=== PATIENT | female | born 1950 | race Caucasian/White ===

== ENCOUNTER → 2017-04-19 09:27 | Outpatient (CLI) | payer MEDICARE, SELFPAY ==
--- NOTE | 2017-04-19 07:00 | PET_ITS ---
EXAMINATION: FDG PET CT INDICATIONS: A 66-year-old female with reported history of primary lung carcinoma presenting for restaging examination. COMPARISON EXAMINATION: Previous FDG PET study dated 12/21/16. INDEX LESION SIZE SUV INTERPRETATION PERSISTENT: Tenth thoracic vertebra left of the midline 2.7 compared to 5.3, 12/21/16 Fulfills quantitative criteria for viable neoplasm, interim metabolic improvement ? quantitative partial metabolic response NON-INDEX LESION SIZE SUV INTERPRETATION NEW: Left lower posteromedial lung zone corresponding calcified soft tissue 2.1 Quantitative criteria for viable neoplasm are not fulfilled TECHNIQUE: Following the intravenous administration of 14.49 mCi of F-18 deoxyglucose via the left antecubital fossa, multiplanar image acquisitions of the neck, chest, abdomen and pelvis to level of mid thigh, obtained at one hour post radiopharmaceutical administration contemporaneously interpreted with the current CT of the neck, chest, abdomen and pelvis to level of mid thigh, dated 04/19/17 via coregistration and prior-previous FDG PET study dated 12/21/16 reveal: SERUM GLUCOSE LEVEL: 88 mg/dl. HEIGHT: 67 inches. WEIGHT: 120 lbs. FINDINGS: 1. Increased glucose metabolism persists at the level of the tenth thoracic vertebra to the left of the midline contiguous to the vertebral body generating a calculated maximum standard uptake value of 2.7 compared to 5.3 defined on the FDG PET study dated 12/21/16. Quantitative criteria for viable osseous neoplasm remain filled. A corresponding mixed sclerotic-lytic change is noted on view of CT of the thorax dated 04/19/17 in the analogous location. 2. Mild increased glucose metabolism is currently defined in the left mid-lower posteromedial lung zone corresponding to calcified soft tissue generating a calculated maximum standard uptake value of 2.1. Quantitative criteria for viable neoplastic transformation are not fulfilled. 3. Normal physiologic distribution of the radiopharmaceutical is apparent in the hepatic (2.5/3.2) and splenic parenchyma, both renal units, bladder and visualized intestinal tract. There is symmetric and preserved glucose metabolism noted in the visualized portion of the frontal, occipital, temporal and parietal lobes of the cerebral cortex, as well as cerebral hemispheres and basal ganglia. Diffuse intestinal tract activity is noted throughout all four quadrants of the abdominal-pelvic retroperitoneum, mesentery consistent with normal physiologic distribution of the radiopharmaceutical. Asymmetric increased glucose concentration is observed in the perispinal musculature at the level of the twelfth thoracic vertebra to the right of the midline most consistent with a component of muscle tension artifact. The prior defined morphologic-anatomic changes noted on CT of the neck, chest, abdomen and pelvis manifest on the FDG PET CT study dated 12/21/16 are essentially unchanged on the present examination. PET/PET/CT Tumor Base -Thigh Init IMPRESSION: 1. ABNORMAL EXAMINATION INDICATIVE OF MALIGNANT VIABLE NEOPLASM. 2. Increased glucose concentration redemonstrated in the tenth thoracic vertebra fulfills quantitative criteria for viable osseous neoplasm. (Zia et al, Clinical Nuclear Medicine 29:161, 2004). 3. Enhanced glucose concentration observed in the left mid-lower posteromedial lung zone corresponding to partially-calcified soft tissue does not fulfill quantitative criteria for viable neoplasm. (Mirian et al, Journal of Nuclear Medicine 43:302 P, 2002). 4. Overall, compared to the prior FDG PET study dated 12/21/16, there is continued demonstration of viable neoplasm within the context of the tenth thoracic vertebra manifesting an interval quantitative partial metabolic response, according to EORTC criteria. (Young et al, Journal of Cancer 13:1773, 1999). Electronic Signature Erwin Lemus D.O. Electronically Signed: Erwin Lemus DO at 22:58 EST Tel , Service support ,
== END ==
PROVIDERS: Visit Provider Internal Medicine Medical Oncology
DX: C34.92 Malignant neoplasm of unspecified part of left bronchus or lung (principal); C50.911 Malignant neoplasm of unspecified site of right female breast; C79.51 Secondary malignant neoplasm of bone
CPT/HCPCS: 78815; A9552

== ENCOUNTER → 2017-05-03 13:18 | Outpatient (CLI) | payer MEDICARE, SELFPAY ==
--- NOTE | 2017-05-03 13:24 | MRI_ITS ---
STUDY: MRI BRAIN WITH AND WITHOUT CONTRAST REASON FOR EXAM: Female, 66 years old. Bilateral leg weakness, extensive cancer history TECHNIQUE: Standardized multiplanar fat and water weighted pulse sequences were obtained. 6 ml of Gadavist contrast material was administered intravenously for the contrast portion of the examination. COMPARISON: None. FINDINGS: Normal size of the ventricles and extra-axial spaces for the patient's age. Normal white matter tracts of the supratentorial brain. Normal bilateral basal ganglia. Normal thalami. There is no extra-axial fluid accumulation. Normal flow voids within the major intracranial circulation suggesting patency by spin echo criteria. Normal venous enhancement. There is no enhancing intra-axial or extra-axial abnormality. Normal sella turcica, pituitary gland, infundibular stalk, optic chiasm and hypothalamus. Normal tectal plate and pineal gland. Normal midbrain, robert and medulla. Normal cerebellum. Normal basal cisterns. Normal bilateral temporal bones. Normal bilateral internal auditory canals. No demonstrated orbital abnormality, within the constraints of a routine brain study. Normal visualized paranasal sinuses. Normal calvarium and skull base. Normal visualized soft tissue structures. Normal visualized upper cervical spine. MRI/Brain W/WO Contrast IMPRESSION: No evidence of intracranial metastatic disease. No evidence of infarct or hemorrhage. Electronically Signed: Bonifacio Sotomayor MD at 0:45 EST Tel , Service support ,
== END ==
PROVIDERS: Visit Provider Internal Medicine Medical Oncology
DX: R26.81 Unsteadiness on feet (principal); C50.911 Malignant neoplasm of unspecified site of right female breast; C34.92 Malignant neoplasm of unspecified part of left bronchus or lung; C79.51 Secondary malignant neoplasm of bone
CPT/HCPCS: 70553; A9585

== ENCOUNTER → 2017-07-08 13:29 | Outpatient (CLI) | payer MEDICARE, SELFPAY ==
[2017-07-08 15:28] LABS: Cholesterol 148 mg/dL (200); High Density Lipoprotein 47 mg/dL; T4 Free Direct 1.45 ng/dL (0.76-1.46); Thyroid Stim Hormone (TSH) 1.03 uIU/mL (0.358-3.74); Triglycerides 108 mg/dL; Very Low Density Lipoprotein 22 mg/dL (5-40)
[2017-07-09 08:22] LABS: Vitamin D,25 Hydroxy 88.8 ng/mL (29.95-100.01)
== END ==
PROVIDERS: Family Provider Internal Medicine; PCP Internal Medicine; Visit Provider Internal Medicine
DX: M81.0 Age-related osteoporosis without current pathological fracture (principal); E78.5 Hyperlipidemia, unspecified; E03.9 Hypothyroidism, unspecified
CPT/HCPCS: 36415; 80061; 82306; 84439; 84443

== ENCOUNTER 2017-07-28 14:00 | Outpatient (RCR) | payer MEDICARE, SELFPAY ==
--- NOTE | 2017-05-23 21:19 | HP.PTEVAL_ITS ---
Patient's Visit Information KATY BAILON is a 66 year old F referred to Physical Therapy by MD ADRIEL Whelan with a diagnosis of Weakness, other disorders of peripheral nervous system. Date of Evaluation: 05/17/17 Physical Therapist: Azael Meadows - Visit Plan Frequency: 2x /Week Duration: 4 Weeks Plan: I would recommend that his patient start with Home health therapy at this time seoncdary to limited ability to get to outpatient therapy, pt. concerns about immunodepression, and ability to effectly increase strength/mobility in her home. If this is not practical or reasonable I can treat her in outpatient, with focus on BLE strengthening, functional strengthening and endruance training. - Subjective Subjective: Pt. is here today for her initial evaluation with diagnosis of weakness from other disorder or peripheral nervous system. Pt. is here for bilateral LE weakness and neuropthay stemming after recent cancer treatments. Pt. 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 Pt. is considering what sounds like kyphoplasty in near future. Pt. reports recent medication has caused significant weakness in bilateral LEs and limiting her overall function. Pt. reports no real pain, but is concerned about her recent down turn in functional mobility. Pt. is now only able to ambulate in home with and without AD, but is more and more often walking with FWW. Pt. is now using wheel chair for all mobility to physician offices. Pt. reports that currently she does not leave home unless to visit physician. Pt. reports being able to occassionally furniture walk, but mostly uses walker. Pt. reports she has 3 steps to get in her home, but is able to complete with help from her daughter. Pt. reports having 1 fall in kitchen, my legs just gave out on me. Pt. is hopeful to increase BLE strength and progress stability in order to get back to all ADLs and home mobility without assistance. - Objective POSTURE: Pt. has general flexed posture in sitting and in stance. Pt. has normal shoulder heights bilaterally. PALPATION: Pt. has tendness throughout thoracic spine and thoracic erector spinea muscles. Pt. has no pain throughout bilateral LEs. NEUROLOGICAL: Pt. has decreased sensation to light touch of bilateral distal LEs ~knee down. Pt. has normal sensation to sharp touch throughout bilateral LEs. Pt. has 2+ bilateral achilles and patellar DTR bilaterally. Pt. is able to rise on heels and toes, but requires balance aid to complete. ROM: Pt. has normal ROM throughout bilateral LEs, no pain reported. Pt. has decreased lumbar ROM both flexion and extension secondary to increase in pain, did not test over pressures. MMT: RLE- ankle 5-/5 throughout; knee- ext 4-/5, flexion 4-/5; hip- flexion 4-/5, abd 4-/5, ext 4-/5. LLE- ankle 5-/5 throughout; knee- ext 4/5, flexion 4-/5; hip- flexion 4-/5, abd 4-/5, ext 4-/5. Core strength- poor. GAIT: Pt. was able to ambulate without AD with min A to complete with decreased step length. Pt. was able to ambulate 21ft. without AD. Pt. ambulated 39ft. with FWW SBA initially regressed to CGA by end of trial with reports of increased fatigue. Pt. was unable to ambulate futher reports of high levels of fatigue. STAIRS: pt. was able to negotiate 4 steps with JAEL and 2 HR. Pt. reports high levels of fatigue with trial. Step to pattern completed throughout. FUNCTIONAL MOBILITY: Transfers- SBA with FWW, SBA without AD, slight postural sway with initial standing. Bed mobility: I without assistance. - Balance Scores Functional Gait Assessment Score: 10 % Disability: 66.6700 - Goals Goal 1:: Pt. to be I with HEP. Goal Time Frame: 4-6 Weeks Goal 2:: Pt. to have increased BLE strength by 1/2 grade of all effected musculature increasing ability to complete all functional mobility. Goal Time Frame: 4-6 Weeks Goal 3:: STG: Pt. to ambulate 150ft. with FWW withtout LOB HEVER allowing for increased community mobility. Goal Time Frame: 4-6 Weeks Goal 4:: LTG: Pt. to ambulate 300ft. with least restrictive device versus no AD HEVER allowing for increased independence in community. Goal Time Frame: 6-8 Weeks Goal 5:: Pt. to negotiate 4 steps with 1 HR HEVER allowing for increased independence entering home. Goal Time Frame: 4-6 Weeks Goal 6:: Pt. to have increased FGA to 30 indicating reduced risk for falls. Goal Time Frame: 6-8 Weeks - Rehabilitation Potential Physical Therapy Diagnosis: Pt. presents with bilateral LE weakness, gait difficulty, balance difficulty, and overall decreased functional mobility secondary to cancer and cancer treatments. Pt. would benefit from PT to address above limitations and to progress stability with all functional mobility. Rehabilitation Potential: Fair - Anticipated Interventions Patient/Client Instruction: Educate patient on: Condition, Plan of Care, Risk Factors, Benefits of Fitness Program For the Purpose of:: To improve decision making, To facilitate caregiver knowledge, To improve self management, To prevent re-injury, To improve ability to perform tasks related to life management, To improve tolerance to ADL's Therapeutic Exercise to Include: Strength training, Power training, Endurance training, Balance training, Agility training, Body mechanics, Postural training , Gait and locomotor training, Passive ROM, Active ROM For the Purpose of:: To improve nutrient delivery to tissue, To increase oxygenation perfusion, To improve muscle performance and motor function, To improve ability to perform ADL's, To increase tolerance to activity/condition/ position, To improve performance and independence with ADL's, To decrease level of supervision to perform tasks, To improve ability of physical actions for home /community/work/leisure, To improve gait and locomotor functions, To improve health of tissue, To improve endurance, To improve balance, To improve safety with gait, To assume or resume ADL's Thank you for the opportunity to evaluate your patient. For Medicare and Medicare HMO plans, please review the plan of care and approve it. It will need to be FAXED BACK to us at [phone] for Medicare purposes. Please let me know if there are questions or concerns regarding this plan of care. Physician Signature: Date:
--- NOTE | 2017-08-03 11:06 | HP.PTDCSUM_ITS ---
HP - PT D/C Summary It has been my pleasure to treat KATY BAILON under orders from Lex Manuel MD, for the diagnosis of Weakness, other disorders of peripheral nervous system for a total of 9 visit(s). Discharge Date: 07/28/17 Please see the following information for a summary of their discharge status. - Subjective Subjective: Pt. reports 'I am doing much better. Pt. reports being HEP compliant. She is walking throughout home without AD without issues. Pt. reports no pain currently. Pt. reports being 75% better overall. She is to go back to physician to determine if she is to start her cancer treatments again. She reports that she is ready to start doing HEP Independently - Pain back Pain Intensity (Out of 10): 0 - Overall Improvement % Improvement: 75 - Objective Objective/Function: GAIT: Pt. walks independently with SPC, 355ft. this date. Pt. reported increased fatigue, but no pain. SpO2 did drop to 89%, some pursed lip breathing brought her back to 93% in ~1 minute. STAIRS: Pt. is able to negotiate with 1 HR without LOB with reciprocal pattern. Pt. reports increased fatigue with trials. MMT- RLE- ankle 5/5 throughout; knee- ext 4+/5, flexion 4+ /5; hip- flexion 4/5, abd 4/5, ext 4/5. LLE- ankle 5/5 throughout; knee- ext 4+ /5, flexion 4+/5; hip- flexion 4/5, ext 4/5, abd 4/5. - Goals Goal 1:: Pt. to be I with HEP. Goal Progress: Goal Met Goal 2:: Pt. to have increased BLE strength by 1/2 grade of all effected musculature increasing ability to complete all functional mobility. Goal Progress: Goal Met Goal 3:: STG: Pt. to ambulate 150ft. with FWW withtout LOB HEVER allowing for increased community mobility. Goal Progress: Goal Met Goal 4:: LTG: Pt. to ambulate 300ft. with least restrictive device versus no AD HEVER allowing for increased independence in community. Goal Progress: Goal Met Goal 5:: Pt. to negotiate 4 steps with 1 HR HEVER allowing for increased independence entering home. Goal Progress: Goal Met Goal 6:: Pt. to have increased FGA to 18/30 indicating reduced risk for falls. Goal Progress: Goal Met - Plan Plan: Pt. to be DC from PT to HEP at this point in time. - D/C Information Discharge Comments: Pt. progressed as expected with BLE strengthening, endurance training, balance training and progression of her HEP. Pt. has met all current goals. She is ready to be progressed to independent HEP at this current time. Pt. is pleased with progress. Pt. is instructed to keep up with her LE strengthening and endurance walking progression as tolerated. If there are questions or concerns regarding this patient's physical therapy, please feel free to call me at [phone]. Thank you for the referral of this patient. Sincerely, Azael Meadows
== END 2017-07-28 19:00 | disposition home or self-care (01) ==
LOC: PT 14:00
PROVIDERS: Visit Provider Internal Medicine Medical Oncology
DX: R53.1 Weakness (principal); G64 Other disorders of peripheral nervous system
CPT/HCPCS: 97110; 97161; 97530

== ENCOUNTER → 2017-12-20 10:34 | Outpatient (CLI) | payer MEDICARE, SELFPAY ==
--- NOTE | 2017-12-20 10:36 | NM_ITS ---
CLINICAL: 67-year-old female with reported history of primary lung and breast carcinoma. WHOLE BODY 99m Tc MDP RADIONUCLIDE BONE SCINTIGRAPHY COMPARISON: FDG PET/CT study report dated 04/19/2017 FINDINGS: Following the intravenous administration of 24.5 mCi of 99m Tc MDP, whole body bone images reveal: 1. Increased radiopharmaceutical concentration is demonstrated in the 10th thoracic vertebra posteriorly on the left, the right anterolateral third, left anterolateral fourth ribs. 2. Enhanced uptake is demonstrated in the fourth-fifth lumbar vertebra posteriorly on the left and right, caudal aspect of the left sacroiliac joint, the acromioclavicular compartment of the right shoulder, the left and right knee articulations, upper cervical spine posteriorly on the right, mid and lower cervical spine posteriorly on the left, third thoracic vertebra, the left midfoot. 3. The remaining skeletal structures are scintigraphically unremarkable with normal-appearing renal images and urinary bladder activity identified. NM/Bone Scan Whole Body IMPRESSION: 1. The increased radiopharmaceutical concentration identified in the 10th thoracic vertebra and bilateral upper anterolateral ribs is most consistent with skeletal metastatic disease. Uptake in the 10th thoracic vertebra appears to correlate with metabolic findings described on the FDG PET/CT examination dated 04/19/2017. Plain film radiography correlation may be of benefit in the bilateral ribs. 2. Degenerative arthritis appears expressed in the cervical, lumbar and additional thoracic vertebra, left sacroiliac joint, right shoulder, bilateral knees, the left midfoot. Plain film radiographic correlation may also be of benefit in the lower lumbar spine. Electronically Signed: Erwin Lemus DO at 11:24 EDT Tel , Service support ,
== END ==
PROVIDERS: Family Provider Internal Medicine; PCP Internal Medicine; Referring Provider Internal Medicine Medical Oncology; Visit Provider Internal Medicine Medical Oncology
DX: C50.911 Malignant neoplasm of unspecified site of right female breast (principal); C34.92 Malignant neoplasm of unspecified part of left bronchus or lung; C79.51 Secondary malignant neoplasm of bone
CPT/HCPCS: 78306

== ENCOUNTER → 2017-12-27 12:01 | Outpatient (CLI) | payer MEDICARE, SELFPAY ==
--- NOTE | 2017-12-27 12:10 | CT_ITS ---
STUDY: CT CHEST WITH CONTRAST REASON FOR EXAM: Female, 67 years old. History of breast cancer with lung metastases. RADIATION DOSAGE (If Supplied By Facility): CTDIvol = ( 8.03 ) mGy, DLP = ( 541.40 ) mGycm TECHNIQUE: Transaxial imaging was performed following intravenous administration of 100 ml of Isovue 300 contrast material. Individualized dose optimization techniques were used for this CT. COMPARISON: None. FINDINGS: There is moderate stranding in the medial aspect of the right upper lobe cystic/fibrotic changes which could be due to postradiation changes or scarring. It extends to the posterior segment of the left upper lobe. Mild cystic/fibrotic changes are also seen inferior to the left hilum. No focal infiltrate is seen. No focal pulmonary nodule is identified. There is no demonstrated pleural effusions. Normal heart and pericardium. Normal mediastinum. Normal hilar regions. Normal enhanced pulmonary arteries. There is atherosclerotic tortuosity of the aortic arch and descending thoracic aorta. The osseous structures demonstrate sclerotic lesion on the left side of the vertebral body of T10 or T11. There are degenerative changes. The upper abdomen is reported separately. CT/Chest WITH Contrast IMPRESSION: 1. There is stranding in the medial aspect of the left upper lung which could represent postradiation changes and scarring. Infiltrate is less likely. 2. Otherwise no evidence of metastatic disease. 3. Sclerotic lesion in the lower thoracic vertebra. Correlation with bone scan or MRI are recommended to exclude metastatic disease. Electronically Signed: Raoul Colon MD at 3:12 EDT Tel , Service support ,
--- NOTE | 2017-12-27 12:10 | CT_ITS ---
STUDY: CT ABDOMEN AND PELVIS WITH CONTRAST REASON FOR EXAM: Female, 67 years old. History of breast cancer with lung metastases. RADIATION DOSAGE (If Supplied By Facility): CTDIvol = ( 8.03 ) mGy, DLP = ( 541.40 ) mGycm TECHNIQUE: Transaxial images were obtained from the dome of the diaphragm to the symphysis pubis with oral contrast. 100 ml of Isovue 300 contrast was administered. Sagittal and coronal images were reconstructed. Individualized dose optimization techniques were used for this CT. COMPARISON: None. FINDINGS: The visualized lung bases are unremarkable. The visualized portions of the heart are within normal limits. Normal liver. Normal gallbladder and extrahepatic biliary system. Normal spleen. Normal pancreas. Normal bilateral adrenal glands. Normal right kidney. Normal left kidney. The stomach is markedly distended. There are pockets of air near the fundus of the stomach probably in the gastroesophageal junction region. Normal small intestine. There is fecal retention. There are surgical clips in the region of the appendix consistent with a prior appendectomy. There is diffuse atherosclerotic calcification of the abdominal aorta with elongation and tortuosity, but without a demonstrated aneurysm. Normal inferior vena cava. Normal retroperitoneum. Normal urinary bladder. Normal abdominal wall. There are diffuse degenerative changes of the visualized lumbar spine. There is dextroscoliosis of the lumbar spine. There is a sclerotic lesion on the left side of the vertebral body of T11 vertebra which could be due to degenerative changes. Correlation with bone scan or MRI are recommended. CT/Abdomen/Pelvis WITH Contrast IMPRESSION: 1. Sclerotic lesion on the left side of the vertebral body of T11. Metastatic disease is doubtful but cannot be excluded. Correlation with bone scan or MRI are recommended. 2. Otherwise no evidence of metastatic disease. 3. No demonstrated acute process. Electronically Signed: Raoul Colon MD at 2:51 EDT Tel , Service support ,
[2017-12-27 14:16] LABS: CREATININE FINGERSTICK 0.8 mg/dL (0.55-1.02); EGFR FINGERSTICK > 60.0000 mL/min (>60)
== END ==
PROVIDERS: Family Provider Internal Medicine; PCP Internal Medicine; Referring Provider Internal Medicine Medical Oncology; Visit Provider Internal Medicine Medical Oncology
DX: C50.911 Malignant neoplasm of unspecified site of right female breast (principal); C34.92 Malignant neoplasm of unspecified part of left bronchus or lung; C79.51 Secondary malignant neoplasm of bone
CPT/HCPCS: 71260; 74177; Q9967

== ENCOUNTER 2017-12-30 08:27 | Day surgery (SDC) | payer MEDICARE, SELFPAY ==
--- NOTE | 2017-12-29 19:19 | PCM.HP.BLA ---
History and Physical Date of Admission: 12/30/17 HISTORY OF PRESENT ILLNESS 67 year old female presents for evaluation for TBSE. She is concerned about an enlarging lesion on the superior helical rim right ear that has increased in size over the last several months. The lesion is ulcerated and is crusty. It is painful when she bumps it. She denies any trauma. She denies fever. She denies bleeding. of right ear lesion. She does have a personal history of metastatic breast cancer. She presents at this time for further evaluation and treatment. PAST MEDICAL HISTORY Arthritis Back problem Bone fracture Breast cancer Breast lump in female COPD (chronic obstructive pulmonary disease) History of blood transfusion Hyperlipemia Hypothyroidism Lung nodule Neuropathy Osteoarthritis Osteoporosis Seizures Tumors Vision problems Hypertension PAST SURGICAL HISTORY foot surgery tubal ligation hysterectomy appendectomy bowel resection bronchoscopy tonsillectomy back surgery lobectomy of lung MEDICATIONS Proair Hfa Diclofenac Sodium [Voltaren] Epinephrine [Epi Pen] Budesonide/Formoterol 80-4.5 [Symbicort 80-4.5 Mcg Inhaler] Gabapentin [Neurontin] Hydrocodone/Acetaminophen [[place] 7.5-325 Tablet] Lidocaine [Lidoderm Patch] Tizanidine HCl [Zanaflex] Topiramate [Qudexy Xr] fentaNYL patch [Duragesic] cholecalciferol (vitamin D3) levothyroxine potassium chloride ER rosuvastatin Exemestane [Aromasin] folic acid omeprazole ALLERGIES Bee venom protein. FAMILY HISTORY Father - Pancreatic cancer Mother - Non-Hodgkin lymphoma Brother - Myocardial infarction Aunt - Breast cancer Grandfather - Aneurysm SOCIAL HISTORY smoking Status: Current every day smoker alcohol intake: former REVIEW OF SYSTEMS General - Denies fear, fatigue, and weight loss. Eyes - Denies cataracts and glaucoma. ENT - Denies nasal congestion and sore throat. Endocrine - Denies excessive thirst and urination. History of hypothyroidism. Has heat/cold intolerant. Has metastatic breast cancer. Skin - She has an enlarging painful ulcerated lesion superior helical rim right ear. Musculoskeletal - Denies joint pain and joint stiffness. Has weakness of muscles and joints, back pain and osteoarthritis. Neuro - Denies headaches. Cardiovascular - Denies chest pain, fatigue, and shortness of breath with exertion. Psych - Denies anxiety and depression. Has claustrophobia. Respiratory - Denies chronic cough. Has shortness of breath with activity. Patient is a smoker. Gastrointestinal - Denies nausea, vomiting, diarrhea, and constipation. Hematologic - Denies abnormal bruising and bleeding. Genitourinary - Denies hematuria and urinary frequency. PHYSICAL EXAMINATION General - Alert and oriented. HEENT - PERRL. EOMI. Throat is clear. On the superior helical rim right ear is a 1 cm lesion. It is crusty and ulcerated. It is tender to palpation. Has irregular borders. No exposed cartilage. Neck - Supple and non-tender. No cervical adenopathy. No suspicious lesions noted. Lungs- Clear to auscultation. Heart - Regular rate and rhythm. Abdomen - Soft and non distended. Extremities - FROM. No axillary adenopathy. Radial pulses are palpable. No suspicious lesions noted. Neuro - CN II - XII grossly intact. Psych - Normal mood and affect. ASSESSMENT 1. 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 2. Personal history of skin cancer. 3. Metastatic breast cancer. 4. Smoker. PLAN Recommend excision of this painful ulcerated lesion superior helical rim right ear and send it to Pathology for analysis to rule out carcinoma. If carcinoma is present, then further excision will be done with chondrocutaneous helical rim advancement skin flaps or skin graft reconstruction. If carcinoma is not present and chondrodermatitis is present, then the defect will be smaller for reconstruction with a skin flap or a skin graft. Surgery will be done on an outpatient basis under local anesthesia and IV sedation. Patient was informed of the risks and complications of the procedure including alternatives to surgery. These were discussed with the patient personally. Patient voices understanding and wishes to proceed. Some of the risks and complications were included in a form from the [place] [employer]. Encouraged patient to stop smoking as it may have deleterious effects on wound healing.
--- NOTE | 2017-12-30 | LES_PTH ---
PATIENT: KATY BAILON LOC: [facility] [place] U#:[id number] AGE/SX: 67/F ROOM: RE12/30/[address]: Dr. Paul Lao MD : 1950 BED: DIS: 12/30/2017 SPEC #: [id number] RECD: 12/30/17 11:13 STATUS: NATE JAYASHREE #: [id number] HERNANDO: 12/30/17 00:[address]: Paul Lao DEPT: SURGICAL PATHOLOGY RECD BY: Gosia Lubin ENTERED: 12/30/17 12:01 SP TYPE: Lesion OTHR DR: Dr. Mary Muniz MD Tissues: Skin of external ear, NOS Procedures: Frozen Section (charge) Surgery Specimen Level IV Frozen (no charge) HEADER OPERATION: Excision painful lesion superior helical rim right ear, frozen section PRE-OP DIAGNOSIS: Painful lesion superior helical rim right ear TISSUE SUBMITTED: Painful lesion superior helical rim right ear, frozen section FROZEN SECTION DIAGNOSIS Painful lesion superior helical rim, right ear, biopsy: Negative for malignancy. OK:verena 12/30/17 MICROSCOPIC DIAGNOSIS Painful lesion, superior helical rim, right ear, biopsy: Solar elastosis, chronic inflammation, hyperkeratosis and parakeratosis. Underlying cartilage with reactive changes. Negative for malignancy. OK:verena 12/31/17 COMMENT Clinical correlation and appropriate follow up are necessary. MICROSCOPIC DESCRIPTION Slides are reviewed. GROSS DESCRIPTION Received fresh for frozen section diagnosis labeled with the patient's name is a specimen designated painful lesion superior helical rim right ear. The specimen consists of a piece of choi-white skin ellipse measuring 0.7 x 0.2 x 0.2 cm. The entire specimen is submitted for frozen section diagnosis in one cassette. / OK:verena 12/30/17 TC:5 CPT: 06652, 67477
[2017-12-30 08:46] VITALS: BP 138/73; PULSE 89; RESP 18; TEMP 36.6; O2SAT 98; BMI 15.9
[2017-12-30] MEDS: Cefazolin 2 GM in 0.9% Normal Saline 100 ML IV (10:50)
[2017-12-30] MEDS: Mupirocin Ointment 22gm Tube 1 APPLIC (11:15)
--- NOTE | 2017-12-30 11:35 | OP.PN_ITS ---
Immediate Post-Op Note Date of Procedure: 12/30/17 Primary Surgeon/Physician: Paul Lao assistant head cashier: None Pre-Operative Diagnosis: 1. 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 2. Personal history of skin cancer. 3. Metastatic breast cancer. 4. Smoker. Post-Operative Diagnosis: 1. 1 cm painful lesion superior helical rim right ear, clinically chondrodermatitis nodularis helicis. 2. Personal history of skin cancer. 3. Metastatic breast cancer. 4. Smoker. Surgery/Procedure Performed:: Excision 1 cm painful lesion including cartilage superior helical rim right ear, clinically chondrodermatitis nodularis helicis. Description of Surgical Findings:: 67 year old female presents for evaluation for TBSE. She is concerned about an enlarging lesion on the superior helical rim right ear that has increased in size over the last several months. The lesion is ulcerated and is crusty. It is painful when she bumps it. She denies any trauma. She denies fever. She denies bleeding. of right ear lesion. She does have a personal history of metastatic breast cancer. She presents at this time for further evaluation and treatment. Today the patient underwent excision 1 cm painful lesion including cartilage superior helical rim right ear, clinically chondrodermatitis nodularis helicis. Frozen section superior helical rim right ear - no carcinoma seen. Estimated Blood Loss: 2 ml. Specimen's removed: Painful lesion superior helical rim right ear including cartilage to Pathology. Drains: None. Type of Anesthesia:: Local MAC - xylocaine with epinephrine and IV sedation. - Admit VTE Documentation VTE Present on Admission: No VTE Mechan Device Prophylaxis: SCD's VTE Pharm Prophylaxis ordered?: No
[2017-12-30 11:40] VITALS: BP 128/66; BP 138/73; PULSE 88; RESP 16; TEMP 36.2; O2SAT 99
[2017-12-30 11:45] VITALS: BP 127/69; BP 138/73; PULSE 92; RESP 16; O2SAT 99
--- NOTE | 2017-12-30 11:46 | PCM.DC ---
You will use the following diet at home:: No restrictions Discharge Activity: May Shower - in two days., - - no heavy liftng. keep head elevated. May shower in (days): 2 May resume sexual activity in: No Restrictions Weight Bearing Status: Weight bearing as tolerated Lifting Restrictions: 20 lbs. Keep extremity elevated above heart level: - - elevate head. Call your doctor if your incision/area has: Continuous Slow Oozing, Sudden Increased Bleeding, Increased Pain/ Swelling, Increased Redness, Foul Smelling Discharge, Swelling at the incision site Call your doctor if you observe: Fever of 101 or Higher, Coldness, Increased Pain, Shortness of breath, Chest pain, Calf discomfort, Uncontrolled pain Suture Line Care: - - apply antibiotic ointment to suture line daily. Cleanse incision/area with: - - may get incision wet in the shower in two days. Allergies/Adverse Reactions: Allergies bee venom protein (honey bee) Allergy (Verified 12/23/17 09:05) Anaphylaxis Medications to take at Discharge Proair Hfa 90 mcg PO Q4H PRN 01/16/13 Diclofenac Sodium [Voltaren] 1 applicatio TOPICAL PRN PRN 03/22/13 Epinephrine [Epi Pen] 1 injectable SQ PRN PRN 03/22/13 Breast Prosthese 06/10/16 Budesonide/Formoterol 80-4.5 [Symbicort 80-4.5 Mcg Inhaler] 2 puff INHALATION BID 06/10/16 Gabapentin [Neurontin] 600 mg PO TIDCM 06/10/16 Hydrocodone/Acetaminophen [[place] 7.5-325 Tablet] 10 mg PO 4X/DAY 06/10/16 Lidocaine [Lidoderm Patch] 1 patch TOPICAL DAILY 06/10/16 Mastectomy Bra 06/10/16 Tizanidine HCl [Zanaflex] 6 mg PO TID 06/22/16 Topiramate [Qudexy Xr] 150 mg PO BID 06/22/16 fentaNYL patch [Duragesic patch] 25 mcg TRANSDERM. Q72H 05/05/17 levothyroxine 75 mcg tablet 75 mcg PO DAILY #90 tab 08/05/17 potassium chloride ER 10 mEq capsule,extended release 10 meq PO DAILY #90 cap 08/05/17 rosuvastatin 20 mg tablet 20 mg PO DAILY #90 tab 08/05/17 Exemestane [Aromasin] 25 mg PO DAILY 90 Days #90 tab 09/07/17 folic acid 1 mg tablet 1 mg PO DAILY #90 tab 09/29/17 omeprazole 20 mg capsule,delayed release 20 mg PO DAILY #90 cap 10/07/17 Disability/Handicap Placard #1 ea 11/29/17 cholecalciferol (vitamin D3) 50,000 unit capsule 50,000 unit PO Q4W #3 cap 12/15/17 Clindamycin HCl [Cleocin] 300 mg PO TID #21 capsule 12/30/17 Lactobacillus Acidophilus/Fos [Acidophilus Probiotic Tablet] 1 each PO BID #15 tablet 12/30/17 The following prescriptions were given: Lactobacillus Acidophilus/Fos [Acidophilus Probiotic Tablet] 1 each PO BID #15 tablet Clindamycin HCl [Cleocin] 300 mg PO TID #21 capsule Primary Care Physician: Mary Muniz MD [Primary Care Provider] - Test Results: Test results from this visit will be discussed in further detail at your follow-up appointment, if applicable. Please Follow Up With: Paul Lao MD When: one week. Call [phone] for appt. Proposed Discharge Date: 12/30/17
--- NOTE | 2017-12-30 11:49 | DCINST_ITS ---
You will use the following diet at home:: No restrictions Discharge Activity: May Shower - in two days., - - no heavy liftng. keep head e levated. May shower in (days): 2 May resume sexual activity in: No Restrictions Weight Bearing Status: Weight bearing as tolerated Lifting Restrictions: 20 lbs. Keep extremity elevated above heart level: - - elevate head. Call your doctor if your incision/area has: Continuous Slow Oozing, Sudden Increased Bleeding, Increased Pain/ Swelling, Increased Redness, Foul Smelling Discharge, Swelling at the incision site Call your doctor if you observe: Fever of 101 or Higher, Coldness, Increased Pain, Shortness of breath, Chest pain, Calf discomfort, Uncontrolled pain Suture Line Care: - - apply antibiotic ointment to suture line daily. Cleanse incision/area with: - - may get incision wet in the shower in two days. Allergies/Adverse Reactions: Allergies bee venom protein (honey bee) Allergy (Verified 12/23/17 09:05) Anaphylaxis Medications to take at Discharge Proair Hfa 90 mcg PO Q4H PRN 01/16/13 Diclofenac Sodium [Voltaren] 1 applicatio TOPICAL PRN PRN 03/22/13 Epinephrine [Epi Pen] 1 injectable SQ PRN PRN 03/22/13 Breast Prosthese 06/10/16 Budesonide/Formoterol 80-4.5 [Symbicort 80-4.5 Mcg Inhaler] 2 puff INHALATION BID 06/10/16 Gabapentin [Neurontin] 600 mg PO TIDCM 06/10/16 Hydrocodone/Acetaminophen [[place] 7.5-325 Tablet] 10 mg PO 4X/DAY 06/10/16 Lidocaine [Lidoderm Patch] 1 patch TOPICAL DAILY 06/10/16 Mastectomy Bra 06/10/16 Tizanidine HCl [Zanaflex] 6 mg PO TID 06/22/16 Topiramate [Qudexy Xr] 150 mg PO BID 06/22/16 fentaNYL patch [Duragesic patch] 25 mcg TRANSDERM. Q72H 05/05/17 levothyroxine 75 mcg tablet 75 mcg PO DAILY #90 tab 08/05/17 potassium chloride ER 10 mEq capsule,extended release 10 meq PO DAILY #90 cap 08/05/17 rosuvastatin 20 mg tablet 20 mg PO DAILY #90 tab 05/24/18 Exemestane [Aromasin] 25 mg PO DAILY 90 Days #90 tab 09/07/17 folic acid 1 mg tablet 1 mg PO DAILY #90 tab 09/29/17 omeprazole 20 mg capsule,delayed release 20 mg PO DAILY #90 cap 10/07/17 Disability/Handicap Placard #1 ea 11/29/17 cholecalciferol (vitamin D3) 50,000 unit capsule 50,000 unit PO Q4W #3 cap 12/15/17 Clindamycin HCl [Cleocin] 300 mg PO TID #21 capsule 12/30/17 Lactobacillus Acidophilus/Fos [Acidophilus Probiotic Tablet] 1 each PO BID #15 tablet 12/30/17 The following prescriptions were given: Lactobacillus Acidophilus/Fos [Acidophilus Probiotic Tablet] 1 each PO BID #15 tablet Clindamycin HCl [Cleocin] 300 mg PO TID #21 capsule Primary Care Physician: Mary Muniz MD [Primary Care Provider] - Test Results: Test results from this visit will be discussed in further detail at your follow- up appointment, if applicable. Please Follow Up With: Paul Lao MD When: one week. Call [phone] for appt. Proposed Discharge Date: 12/30/17
[2017-12-30 11:50] VITALS: BP 137/62; BP 138/73; PULSE 89; RESP 16; O2SAT 100
[2017-12-30 11:55] VITALS: BP 137/72; BP 138/73; PULSE 91; RESP 16; TEMP 36.3; O2SAT 99
[2017-12-30 12:30] VITALS: BP 138/73
--- NOTE | 2017-12-30 20:00 | PCM.OPRPT ---
Report of Operation Date of Procedure: 12/30/17 Pre-Operative Diagnosis: 1. 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 2. Personal history of skin cancer. 3. Metastatic breast cancer. 4. Smoker. Post-Operative Diagnosis: 1. 1 cm painful lesion superior helical rim right ear, clinically chondrodermatitis nodularis helicis. 2. Personal history of skin cancer. 3. Metastatic breast cancer. 4. Smoker. Surgery/Procedure Performed:: Excision 1 cm painful lesion including cartilage superior helical rim right ear, clinically chondrodermatitis nodularis helicis. Description of Surgical Findings:: 67 year old female presents for evaluation for TBSE. She is concerned about an enlarging lesion on the superior helical rim right ear that has increased in size over the last several months. The lesion is ulcerated and is crusty. It is painful when she bumps it. She denies any trauma. She denies fever. She denies bleeding. of right ear lesion. She does have a personal history of metastatic breast cancer. Patient was informed of the risks and complications of the procedure including alternatives to surgery. These were discussed with the patient personally. Patient voices understanding and wishes to proceed. Some of the risks and complications were included in a form from the [place] [employer]. Encouraged patient to stop smoking as it may have deleterious effects on wound healing. Frozen section superior helical rim right ear - no carcinoma seen. manager pulmonary: None Type of Anesthesia:: Local MAC - xylocaine with epinephrine and IV sedation. Specimen's removed: Painful lesion superior helical rim right ear including cartilage to Pathology. Drains: None. Estimated Blood Loss (mL): 2 ml. Description of Procedure: Patient was taken to OR in supine position and was given IV sedation. The right ear was prepped and draped in the usual fashion. SCD's were placed for DVT prophylaxis. Perioperative antibiotics were given intravenously. The right ear was infiltrated with xylocaine and epinephrine with a periauricular block. After waiting 5 minutes for the anesthetic to take effect, I excised the painful lesion on the superior helical rim right ear including underlying cartilage. The lesion was sent to Pathology for analysis to rule out carcinoma. Frozen section showed no carcinoma seen. Clinically the painful lesion was consistent with chondrodermatitis nodularis helicis. Hemostasis was obtained with electrocautery. The wound was closed primarily with 5-0 Monocryl simple interrupted sutures. Antibiotic ointment was applied. Patient tolerated the procedure well and was sent to PACU in satisfactory condition. Patient will be sent home on antibiotics and pain medication. Patient will keep her head elevated during the initial postop period. Patient will followup in a week for a wound check and for discussion of the pathology report. Grafts/Implants Used: None. - Complications None. - Admit VTE Documentation VTE Present on Admission: No VTE Mechan Device Prophylaxis: SCD's VTE Pharm Prophylaxis ordered?: No Code Visit Surgery Charges CPT - 22581 ICD-10 - D49.2, H61.001, C50.919, Z85.828, F17.200
== END 2017-12-30 12:31 | disposition home or self-care (01) ==
LOC: SDC 08:28 → AC 08:29
PROVIDERS: Family Provider Internal Medicine; PCP Internal Medicine; Referring Provider Surgery; Visit Provider Surgery
PROC: (CPT 11441; principal; 2017-12-30 09:45)
DX: R23.4 Changes in skin texture (principal); L85.9 Epidermal thickening, unspecified; L57.0 Actinic keratosis; Z85.828 Personal history of other malignant neoplasm of skin; Z85.3 Personal history of malignant neoplasm of breast; F17.200 Nicotine dependence, unspecified, uncomplicated; H92.01 Otalgia, right ear; M19.90 Unspecified osteoarthritis, unspecified site; J44.9 Chronic obstructive pulmonary disease, unspecified; E78.5 Hyperlipidemia, unspecified; E03.9 Hypothyroidism, unspecified; I10 Essential (primary) hypertension; Z79.899 Other long term (current) drug therapy; Z79.51 Long term (current) use of inhaled steroids; H60.61 Unspecified chronic otitis externa, right ear
CPT/HCPCS: 00300; 11441; 88305; 88331; J7120

== ENCOUNTER → 2018-01-06 13:24 | Outpatient (CLI) | payer MEDICARE, SELFPAY ==
--- NOTE | 2018-01-06 13:30 | BD_ITS ---
STUDY: DUAL ENERGY X-RAY ABSORPTIOMETRY / DXA REASON FOR EXAM: Female, 67 years old. The patient is postmenopausal. Loss of height. TECHNIQUE: Bone Mineral Density (BMD) measurements of lumbar spine and bilateral hips were obtained. COMPARISON: None. FINDINGS: Lumbar Spine (L1-L4): g/cm2 (1.160) / T-score (0.0) / Z-score (1.6) Findings are suggestive of normal bone density with a low fracture risk. Left Femur Total: g/cm2 (0.860) / T-score (-1.2) / Z-score (0.2) Left Femoral Neck: g/cm2 (0.906) / T-score (-0.9) / Z-score (0.6) Right Femur Total: g/cm2 (0.783) / T-score (-1.8) / Z-score (-0.4) Right Femoral Neck: g/cm2 (0.796) / T-score (-1.7) / Z-score (-0.1) BD/Dexa Bone Density Study IMPRESSION: The patient is considered osteopenic as outlined below according to World [place] Organization (WHO) criteria with a moderate fracture risk. Reference Information: The T-score is the number of standard deviations above or below the standard which is normal for young adults at their peak bone mineral density. The World Health Organization (WHO) interprets the T-scores as follows: Above -1 Normal bone density Between -1 and -2.5 Osteopenia Equal to / or below -2.5 Osteoporosis As a practical clinical guideline, osteopenia may be graded as follows: Mild -1 through -1.5 Moderate -1.6 through -2.0 Severe -2.1 through -2.4 The Z-score is the number of standard deviations above or below age-matched controls. A Z-score of less than -1.5 would be considered abnormal. References: 1. NIH Osteoporosis and Related Bone Diseases http://www.osteo.org 2. International Society for Clinical Densitometry http://www.iscd.org 3. National Osteoporosis Foundation http://www.nof.org Electronically Signed: Mitch Mcrae MD at 15:45 EDT Tel [phone], Service support ,
== END ==
PROVIDERS: Family Provider Internal Medicine; PCP Internal Medicine; Referring Provider Internal Medicine Medical Oncology; Visit Provider Internal Medicine Medical Oncology
DX: M81.0 Age-related osteoporosis without current pathological fracture (principal); C50.911 Malignant neoplasm of unspecified site of right female breast; C34.92 Malignant neoplasm of unspecified part of left bronchus or lung; C79.51 Secondary malignant neoplasm of bone
CPT/HCPCS: 77080

== ENCOUNTER → 2018-05-11 10:11 | Outpatient (CLI) | payer MEDICARE, SELFPAY ==
[2018-05-09 13:40] VITALS: BMI 16.0
--- NOTE | 2018-05-11 10:15 | NM_ITS ---
CLINICAL: 67-year-old female with reported history of primary breast, lung and colorectal carcinoma. WHOLE BODY 99m Tc MDP RADIONUCLIDE BONE SCINTIGRAPHY COMPARISON: Whole body bone scintigraphy study dated 12/20/2017 FINDINGS: Following the intravenous administration of 25.0 mCi of 99m Tc MDP, whole body bone images reveal: 1. Increased radiopharmaceutical concentration is persistently defined in the left anterolateral fourth rib the right anterolateral third rib, the 11th thoracic vertebra posteriorly on the left, newly visualized in the right posterior 10th rib, and potentially distal sternum. 2. Enhanced tracer concentration is currently demonstrated in the fourth-fifth lumbar vertebra and sacrum, upper cervical spine posteriorly on the right, mid cervical spine posteriorly on the left, the left and right knee articulations, the acromioclavicular compartment of the right shoulder. 3. The remaining skeletal structures are scintigraphically unremarkable with normal-appearing renal images and urinary bladder activity identified. Facilitated uptake remains apparent in the left mandible and right maxilla most consistent with periodontal disease and/or periostitis. NM/Bone Scan Whole Body IMPRESSION: 1. The increase in radiopharmaceutical concentration persistently defined in the bilateral ribs and newly manifest in the right posterior 10th rib and potentially distal sternum remains consistent with osteoblastic turnover attributed to skeletal metastatic disease. 2. Degenerative arthritis appears currently expressed in the cervical and lumbar spine, sacrum, knees bilaterally, the right shoulder. 3. Overall compared to the previous whole body bone scintigraphy study dated 12/20/2017, there is no significant interval change. Electronically Signed: Erwin Lemus DO at 22:31 EST Tel , Service support ,
== END ==
PROVIDERS: Referring Provider Internal Medicine Medical Oncology; Visit Provider Internal Medicine Medical Oncology
DX: C50.911 Malignant neoplasm of unspecified site of right female breast (principal); C34.92 Malignant neoplasm of unspecified part of left bronchus or lung; C18.9 Malignant neoplasm of colon, unspecified; C79.51 Secondary malignant neoplasm of bone
CPT/HCPCS: 78306

== ENCOUNTER → 2018-05-17 14:59 | Outpatient (CLI) | payer MEDICARE, SELFPAY ==
[2018-05-09 13:40] VITALS: BMI 16.0
--- NOTE | 2018-05-17 15:00 | CT_ITS ---
STUDY: CT ABDOMEN AND PELVIS WITH CONTRAST REASON FOR EXAM: Female, 67 years old. Metastatic breast cancer. RADIATION DOSAGE (If Supplied By Facility): CTDIvol = ( 7.19 ) mGy, DLP = ( 444.36 ) mGycm TECHNIQUE: Transaxial images were obtained from the dome of the diaphragm to the symphysis pubis with oral contrast. Isovue 300 100mL IV/Oral was administered. Sagittal and coronal images were reconstructed. Individualized dose optimization techniques were used for this CT. COMPARISON: Comparison is made with prior study dated December 27, 2017. FINDINGS: Mild elevation of the left hemidiaphragm. The visualized portions of the heart are within normal limits. Normal liver. Normal gallbladder and extrahepatic biliary system. Normal spleen. Normal pancreas. Normal bilateral adrenal glands. Normal right kidney. Normal left kidney. Normal visualized stomach. Normal small intestine. Moderate amount of fecal material is seen in the colon. The appendix is visualized and appears normal. There is diffuse atherosclerotic calcification of the abdominal aorta, without a demonstrated aneurysm. Normal inferior vena cava. Normal retroperitoneum. Normal urinary bladder. There is absence of the uterus consistent with a prior hysterectomy. Normal abdominal wall. There are diffuse degenerative changes of the visualized lumbar spine. Sclerotic metastasis involving the T11 vertebrae. Dextroscoliosis. CT/Abdomen/Pelvis WITH Contrast IMPRESSION: Moderate amount of fecal material is seen throughout the colon. Stable sclerotic involvement of the T11 vertebrae. The examination is essentially unchanged. Electronically Signed: Mitch Mcrae, at 12:44 EST , Service support ,
--- NOTE | 2018-05-17 15:00 | CT_ITS ---
STUDY: CT CHEST WITH CONTRAST REASON FOR EXAM: Female, 67 years old. The patient has a history of metastatic breast carcinoma. This is a follow-up examination. Prior right mastectomy. RADIATION DOSAGE (If Supplied By Facility): CTDIvol = ( 7.19 ) mGy, DLP = ( 444.36 ) mGycm TECHNIQUE: Transaxial imaging was performed following intravenous administration of Isovue 300 100mL IV. Multiplanar coronal and sagittal images were reformatted. Individualized dose optimization techniques were used for this CT. COMPARISON: Comparison is made with prior study dated December 27, 2017. FINDINGS: The patient is status post right mastectomy. Stable increased linear markings with areas of bronchiectasis in the medial aspect of the left upper lobe extending into the superior segment of the left lower lobe with nodular component posteriorly. There is also evidence of a focal pleural thickening on the anterior aspect of the left upper lobe. 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 This is essentially unchanged. Normal heart and pericardium. Normal mediastinum. Normal hilar regions. Normal enhanced pulmonary arteries. There is atherosclerotic tortuosity of the aortic arch and descending thoracic aorta. There are multi-level degenerative changes of the thoracic spine. Once again, there is evidence of a sclerotic metastasis involving the T8 or T11 vertebral body. Scoliosis. There is no demonstrated abnormality of the visualized upper abdomen. 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 Electronically Signed: Mitch Mcrae, at 12:42 EST , Service support ,
== END ==
PROVIDERS: Referring Provider Internal Medicine Medical Oncology; Visit Provider Internal Medicine Medical Oncology
DX: C50.911 Malignant neoplasm of unspecified site of right female breast (principal); C34.92 Malignant neoplasm of unspecified part of left bronchus or lung; C18.9 Malignant neoplasm of colon, unspecified; C79.51 Secondary malignant neoplasm of bone
CPT/HCPCS: 71260; 74177; Q9967

== ENCOUNTER → 2018-09-20 | Outpatient (CLI) | payer MEDICARE, SELFPAY ==
[2018-09-20 11:27] VITALS: BMI 15.6
== END | disposition home or self-care (01) ==
LOC: PSN 12:16
PROVIDERS: Family Provider Internal Medicine; PCP Internal Medicine; Referring Provider Internal Medicine Critical Care Medicine; Visit Provider Internal Medicine Critical Care Medicine
DX: J47.9 Bronchiectasis, uncomplicated (principal)
CPT/HCPCS: 94667

== ENCOUNTER → 2018-11-04 | Outpatient (CLI) | payer MEDICARE, SELFPAY ==
[2018-10-20 19:55] VITALS: BMI 15.6
[2018-11-04 16:11] LABS: Absolute Lymphocyte Count 1.91 X10^3/uL (0.83-4.51); Absolute Neutrophil Count 6.7 X10^3/uL (2.0-7.7); Basophil# 0.05 X10^3/uL; Basophil% 0.5 % (0-1); Eosinophil# 0.11 X10^3/uL; Eosinophils% 1.2 % (0-5); Hematocrit 38.9 % (37-47); Hemoglobin 12.5 g/dL (12.0-15.0); Lymphocyte # 1.91 X10^3/ul (4.0); Lymphocyte % 20.3 % (19-41); Mean Corp Hgb Conc 32.1 g/dL (32-36); Mean Corpuscular Hgb 33.3 pg (27.0-32.0); Mean Corpuscular Volume 103.7 fL (81-99); Mean Platelet Vol. 9.3 fl (6.2-12.0); Monocyte% 6.4 % (0-10); NRBC Flagged by Analyzer 0 % (0-5); Neutrophil # 6.71 X10^3/uL (2.7-7.7); Neutrophil % 71.2 % (47-70); Platelet Count 195 K/mm3 (150-450); RBC Distribution Width CV 13.1 % (11.6-14.6); RBC Distribution Width SD 50.5 fl (35.1-43.9); Red Blood Count 3.75 M/mm3 (4.2-5.4); White Blood Count 9.4 K/mm3 (4.4-11.0)
[2018-11-04 16:49] LABS: AST(SGOT) 15 U/L (15-37); Alanine Aminotransfer ALT/SGPT 23 U/L (13-56); Albumin, Serum 3.5 g/dL (3.2-5.0); Alkaline Phosphatase 84 U/L (45-117); Anion Gap 6 (5-15); BUN 14 mg/dL (7-18); BUN/Creat Ratio 18.4 RATIO (10-20); Calcium,Total 9.2 mg/dL (8.5-10.1); Chloride 114 mmol/L (98-107); Creatinine, Serum 0.76 mg/dL (0.55-1.02); EST Glomerular Filtration Rate 80 mL/min (>60); Est Glom Filt Rate - Afr Amer 97 mL/min (>60); Globulin 3.4 g/dL (2.2-4.2); Glucose 93 mg/dL (74-106); Potassium 4.5 mmol/L (3.5-5.1); Protein, Total 6.9 g/dL (6.4-8.2); Sodium Level 143 mmol/L (136-145)
== END | disposition home or self-care (01) ==
LOC: LAB 15:21
PROVIDERS: Family Provider Internal Medicine; PCP Internal Medicine; Referring Provider Internal Medicine Medical Oncology; Visit Provider Internal Medicine Medical Oncology
DX: C50.911 Malignant neoplasm of unspecified site of right female breast (principal)
CPT/HCPCS: 36415; 80053; 85025

== ENCOUNTER → 2018-12-16 12:40 | Outpatient (CLI) | payer MEDICARE, SELFPAY ==
[2018-09-20 11:27] VITALS: BMI 15.6
[2018-12-12 15:38] VITALS: BMI 15.6
[2018-12-16 13:24] VITALS: PULSE 102; PULSE 103; PULSE 112; PULSE 113; PULSE 114; PULSE 118; PULSE 121; O2SAT 91; O2SAT 92; O2SAT 94; O2SAT 95; O2SAT 96
--- NOTE | 2018-12-16 13:29 | CPS ---
PATIENT USED CANE FOR TESTING. SHE WAS AT HER BASELINE WOB. REST BREAKS TAKEN EACH MINUTE W/ COMPLAINT OF INCREASED WOB AND BACK/RIB PAIN. SHE RESTED ENTIRELY DURING MINUTES 5 AND 6.
--- NOTE | 2018-12-16 14:33 | WT_ITS ---
PSN 6 Minute Walk Test - 6 Minute Walk Test 6 Minute Walk Test: 6 Minute Walk Test PSN:6-Minute Walk Test Start: 12/16/18 13:24 Freq: Status: Active Protocol: [id number] Document 12/16/18 13:24 [facility] (Rec: 12/16/18 13:31 [facility] [id number]) 6 Minute Walk Test Date Performed 12/16/18 Time Performed 12:40 Height 5 ft 7 in Weight: 44.452 kg Weight in Pounds 98.[address]: Lowell Curiel Assistive device used: Cane Pre-test Oxygen Delivery Method Room Air Pulse Ox (%) 95 Pulse Rate (60-100 beats/min) 103 H Dyspnea Nazanin Scale (0-10) 3 Reported Symptoms Increased Work of Breathing 1st minute Oxygen Delivery Method Room Air Pulse Ox (%) 91 Pulse Rate (60-100 beats/min) 112 H Dyspnea Naz[place] Scale (0-10) 4 Number of Rests Taken 1 Reported Symptoms Increased Work of Breathing 2nd minute Oxygen Delivery Method Room Air Pulse Ox (%) 94 Pulse Rate (60-100 beats/min) 113 H Dyspnea Naz[place] Scale (0-10) 4 Number of Rests Taken 1 Reported Symptoms Increased Work of Breathing 3rd minute Oxygen Delivery Method Room Air Pulse Ox (%) 95 Pulse Rate (60-100 beats/min) 114 H Dyspnea Naz[place] Scale (0-10) 4 Number of Rests Taken 1 Reported Symptoms Increased Work of Breathing 4th minute Oxygen Delivery Method Room Air Pulse Ox (%) 92 Pulse Rate (60-100 beats/min) 118 H Dyspnea Nazanin Scale (0-10) 5 Number of Rests Taken 1 Reported Symptoms Increased Work of Breathing 5th minute Oxygen Delivery Method Room Air Pulse Ox (%) 94 Pulse Rate (60-100 beats/min) 121 H Dyspnea Nazan[place] Scale (0-10) 4 Number of Rests Taken 1 Reported Symptoms Increased Work of Breathing 6th minute Oxygen Delivery Method Room Air Pulse Ox (%) 96 Pulse Rate (60-100 beats/min) 114 H Dyspnea Nazanin Scale (0-10) 4 Number of Rests Taken 1 Reported Symptoms Increased Work of Breathing Post-test Oxygen Delivery Method Room Air Pulse Ox (%) 95 Pulse Rate (60-100 beats/min) 102 H Dyspnea Nazanin Scale (0-10) 3 Reported Symptoms Increased Work of Breathing Full Laps Walked 6 Partial Lap, Number of Tiles Walked 10 Total Distance Walked (ft) 364 12/16/18 13:29 Cardiopulmonary Services by Cadence Mathews PATIENT USED CANE FOR TESTING. SHE WAS AT HER BASELINE WOB. REST BREAKS TAKEN E ACH MINUTE W/ COMPLAINT OF INCREASED WOB AND BACK/RIB PAIN. SHE RESTED ENTIRELY DURING MINUTES 5 AND 6. Initialized on 12/16/18 13:29 - END OF NOTE - Interpretation Interpretation: The patient was able to ambulate only 364 feet over the course of 6 minutes on room air with the assistance of a cane and 6 rest breaks. The patient did have significant desaturation as low as 91%, but tachycardia as high as 121 bpm. These findings are consistent with a mixed limitation exercise tolerance. - Recommendations Recommendations: No supplemental oxygen is indicated at this time.
== END ==
PROVIDERS: Family Provider Internal Medicine; PCP Internal Medicine; Referring Provider Internal Medicine Critical Care Medicine; Visit Provider Internal Medicine Critical Care Medicine
DX: J47.9 Bronchiectasis, uncomplicated (principal); J44.9 Chronic obstructive pulmonary disease, unspecified
CPT/HCPCS: 94618

== ENCOUNTER → 2019-04-13 09:40 | Outpatient (CLI) | payer MEDICARE, MEDICAID, SELFPAY ==
[2019-04-04 14:25] VITALS: BMI 16.6
[2019-04-11 13:58] VITALS: BMI 16.6
--- NOTE | 2019-04-13 09:42 | MRI_ITS ---
STUDY: MRI THORACIC SPINE WITH AND WITHOUT CONTRAST REASON FOR EXAM: Female, 68 years old. Metastatic breast cancer. TECHNIQUE: Standardized fat and water weighted pulse sequences were obtained in the sagittal and axial planes. IV 10CC DOTAREM was administered for the contrast portion of the examination. COMPARISON: None. FINDINGS: Multiple metastatic bone lesions at the T6, T9, T10 and T12 levels with variable degrees of enhancement. Bone marrow enhancement predominates at the T9 and T10 levels with extension into the left paravertebral soft tissues and neural foramina (sagittal image 1 series 10). Mild epidural extension on the left at the T9-10 level (axial image 12 series 11). Asymmetric right lung apex soft tissue enhancement without discrete soft tissue lesion. Osseous fusion at the C4-C7 levels. Thoracic kyphosis preserved. No significant scoliosis. Multilevel disc bulges at the T1-2, T2-3, T3-4, C5-6, T6-7, T7-8, T8-9 and T9-10 levels. Mild central canal narrowing at T7-8 and T9-10. Multilevel neural foraminal narrowing predominating at the T1-2 and T9-10 levels. T9-10 neural foraminal narrowing secondary to tumor propagation (sagittal image 3 series 5). No spondylolisthesis. Multilevel mild endplate spondylosis. Chronic T12 and L1 compression deformities. No abnormal thoracic cord signal. Normal mediastinum. Normal thyroid. Normal upper abdomen. Visualized lungs are unremarkable given MRI technique. MRI/Spine Thoracic W/WO Contrast IMPRESSION: Multifocal metastatic lesions with variable degrees of enhancement most pronounced at the T9 and T10 levels with extension into the left paravertebral soft tissues, epidural space and associated neural foramina No abnormal thoracic cord signal Chronic T12 and L1 compression deformities without retropulsion Multilevel intervertebral disc disease with mild central canal narrowing at T7-8 and T9-10 Neural foraminal narrowing predominates at the T1-2 and T9-10 levels Mild osteoarthritic features with extensive cervical fusion Asymmetric right apex soft tissue enhancement without discrete lesion (statistically related to slice selection; consider short-term follow-up contrast MRI of upper thoracic/lower cervical symptoms) Electronically Signed: Scot Roberts DO at 8:51 EST Tel , Service support ,
--- NOTE | 2019-04-13 09:42 | MRI_ITS ---
STUDY: MRI LUMBAR SPINE WITH AND WITHOUT CONTRAST REASON FOR EXAM: Female, 68 years old. Bone metastasis. Breast cancer. TECHNIQUE: Standardized fat and water weighted pulse sequences were obtained in the sagittal and axial planes. IV 10CC DOTAREM was administered for the contrast portion of the examination. COMPARISON: None FINDINGS: Please see dedicated thoracic spine MRI. Last intervertebral disc will be labeled L5-S1 with rudimentary disc. Abnormal metastatic lesions at the T10, T12, L1, L5 and S1 with variable degree of contrast enhancement. Contrast enhancement most pronounced at the T10, T12 and L5 levels. No acute fracture line. No acute dislocation. Conus medullaris terminates normally at the L1-2 level. Dextroscoliosis. Slightly exaggerated lordosis. Chronic vertebral body height loss at the T12 and L1 levels. Cholecystectomy. Small renal cysts. Paraspinal muscle atrophy. Normal aorta. T12-L1: Minimal endplate spondylosis. Disc bulge without central canal narrowing. Facet joint arthrosis. Normal central canal and bilateral lateral recesses. Neural foraminal narrowing without impingement. L1-2: Minimal endplate spondylosis. Disc bulge without central canal narrowing. Facet joint arthrosis. Normal central canal and bilateral lateral recesses. Neural foraminal narrowing without impingement. L2-3: Mild endplate spondylosis. Disc bulge without central canal narrowing. Facet joint arthrosis. Normal central canal and bilateral lateral recesses. Neural foraminal narrowing without impingement. L3-4: Mild endplate spondylosis. Disc bulge without central canal narrowing. Facet joint arthrosis. Normal central canal and bilateral lateral recesses. Neural foraminal narrowing without impingement. L4-5: Moderate endplate spondylosis. Disc bulge without central canal narrowing. Facet joint arthrosis. Normal central canal and bilateral lateral recesses. Neural foraminal narrowing with impingement on the right. L5-S1: Minimal endplate spondylosis. Rudimentary disc. Facet joint arthrosis. Normal central canal and bilateral lateral recesses. Neural foraminal narrowing without impingement. MRI/Spine Lumbar W/WO Contrast IMPRESSION: Multifocal metastatic bone lesions with variable degrees of enhancement most pronounced at the T10, T12 and L5 levels Chronic T12 and L1 compression deformities without retropulsion Multilevel intervertebral disc disease without central canal narrowing Multilevel neural foraminal narrowing and contact of the right exiting L4 nerve root Multilevel osseous degenerative changes with exaggerated lordosis and dextroscoliosis Electronically Signed: Scot Roberts DO at 8:39 EST Tel , Service support ,
[2019-04-13 10:01] LABS: Absolute Lymphocyte Count 3.79 X10^3/uL (0.83-4.51); Absolute Neutrophil Count 6.6 X10^3/uL (2.0-7.7); Basophil# 0.07 X10^3/uL; Basophil% 0.6 % (0-1); Eosinophil# 0.12 X10^3/uL; Hematocrit 39.8 % (37-47); Hemoglobin 12.6 g/dL (12.0-15.0); Lymphocyte # 3.79 X10^3/ul (4.0); Lymphocyte % 32.6 % (19-41); Mean Corp Hgb Conc 31.7 g/dL (32-36); Mean Corpuscular Hgb 33.6 pg (27.0-32.0); Mean Corpuscular Volume 106.1 fL (81-99); Mean Platelet Vol. 8.8 fl (6.2-12.0); Monocyte# 0.85 X10^3/uL; Monocyte% 7.3 % (0-10); NRBC Flagged by Analyzer 0 % (0-5); Neutrophil # 6.61 X10^3/uL (2.7-7.7); Platelet Count 211 K/mm3 (150-450); RBC Distribution Width CV 13.4 % (11.6-14.6); RBC Distribution Width SD 52.1 fl (35.1-43.9); Red Blood Count 3.75 M/mm3 (4.2-5.4); White Blood Count 11.6 K/mm3 (4.4-11.0)
[2019-04-13 10:20] LABS: ALB/GLOB Ratio 0.9 RATIO (0.9-2.4); AST(SGOT) 18 U/L (15-37); Alanine Aminotransfer ALT/SGPT 30 U/L (13-56); Albumin, Serum 3.2 g/dL (3.2-5.0); Alkaline Phosphatase 111 U/L (45-117); Anion Gap 4 (5-15); BUN 18 mg/dL (7-18); BUN/Creat Ratio 20.8 RATIO (10-20); Chloride 113 mmol/L (98-107); Creatinine, Serum 0.87 mg/dL (0.55-1.02); EST Glomerular Filtration Rate 69 mL/min (>60); Est Glom Filt Rate - Afr Amer 83 mL/min (>60); Globulin 3.6 g/dL (2.2-4.2); Glucose 88 mg/dL (74-106); LDH 176 U/L (84-246); Potassium 3.8 mmol/L (3.5-5.1); Protein, Total 6.8 g/dL (6.4-8.2); Sodium Level 144 mmol/L (136-145)
[2019-04-14 13:18] LABS: CA 15-3 17.6 U/mL (0.0-25.0); CA 27.29 27.3 U/mL (0.0-38.6); Carcinoembryonic Antigen 12.8 ng/mL (0.0-4.7)
== END ==
PROVIDERS: PCP Internal Medicine; Referring Provider Internal Medicine Medical Oncology; Visit Provider Internal Medicine Medical Oncology
DX: C50.911 Malignant neoplasm of unspecified site of right female breast (principal); C78.00 Secondary malignant neoplasm of unspecified lung; C79.51 Secondary malignant neoplasm of bone; M54.9 Dorsalgia, unspecified; Z85.828 Personal history of other malignant neoplasm of skin
CPT/HCPCS: 36415; 72157; 72158; 80053; 82378; 83615; 85025; 86300; A9575

== ENCOUNTER → 2019-04-17 10:04 | Outpatient (CLI) | payer MEDICARE, MEDICAID, SELFPAY ==
[2019-04-04 14:25] VITALS: BMI 16.6
[2019-04-11 13:58] VITALS: BMI 16.6
--- NOTE | 2019-04-17 10:04 | NM_ITS ---
CLINICAL: 68-year-old female with reported history of carcinoma of the breast, lung and colon. WHOLE BODY 99m Tc MDP RADIONUCLIDE BONE SCINTIGRAPHY COMPARISON: Whole-body bone scintigraphy study dated 05/11/2018 FINDINGS: Following the intravenous administration of 25.0 mCi of 99m Tc MDP, whole body bone images reveal: 1. Redefined and newly apparent increased radiopharmaceutical concentration is noted in the distal sternum, bilateral ribs, right scapula, mid cervical spine, 9-10th and 12th thoracic, first lumbar vertebra, fifth lumbar vertebra and sacrum, the right proximal femoral diaphysis. 2. Facilitated tracer concentration is demonstrated in the right elbow, knees bilaterally. 3. The remaining skeletal structures are scintigraphically unremarkable with normal-appearing renal images and urinary bladder activity identified. NM/Bone Scan Whole Body IMPRESSION: 1. Both redemonstrated and newly visualized axial and appendicular skeletal foci are commensurate with osseous metastasis. 2. Degenerative arthritis appears expressed in the right elbow and bilateral knees. 3. Overall compared to the previous whole body bone scintigraphy study dated 05/11/2018, there is interval progression of skeletal metastatic disease. Electronically Signed: Erwin Lemus DO at 9:45 EST Tel , Service support ,
== END ==
LOC: NM 10:04
PROVIDERS: PCP Internal Medicine; Referring Provider Internal Medicine Medical Oncology; Visit Provider Internal Medicine Medical Oncology
DX: C50.911 Malignant neoplasm of unspecified site of right female breast (principal); C79.51 Secondary malignant neoplasm of bone; M54.9 Dorsalgia, unspecified; Z85.3 Personal history of malignant neoplasm of breast
CPT/HCPCS: 78306

== ENCOUNTER 2019-05-11 07:43 | Day surgery (SDC) | payer MEDICARE, MEDICAID, SELFPAY ==
--- NOTE | 2019-05-05 02:12 | HP_ITS ---
Intake Vital Signs 05/05/19 BMI 16.6 05/05/19 Height 5 ft 7 in 05/05/19 Weight: 106 lb 05/05/19 BMI 16.6 05/05/19 BP 117/75 05/05/19 Blood Pressure Location Lt brachial 05/05/19 Position Sitting 05/05/19 Respiration 16 Intake Visit Reasons: Port Placement Consult Chemo 05/15 Chief Complaint: F/u for Metastatic breast cancer. [employer] Required: No Is patient in pain?: No Allergies bee venom protein (honey bee) Allergy (Verified 05/05/19 13:50) Anaphylaxis Medications Breast Prosthese 06/10/16 [History Confirmed 05/05/19] Tizanidine HCl [Zanaflex] 6 mg PO TID 06/22/16 [History Confirmed 05/05/19] Topiramate [Qudexy Xr] 150 mg PO BID 06/22/16 [History Confirmed 05/05/19] Amitriptyline HCl 12.5 mg PO QHS 05/09/18 [History Confirmed 05/05/19] epinephrine 0.3 mg/0.3 mL injection, auto-injector 0.3 ml SC PRN PRN #2 ea 07/21/18 [Rx Confirmed 05/05/19] Exemestane [Aromasin] 25 mg PO DAILY #90 tab 09/05/18 [Rx Confirmed 05/05/19] budesonide-formoterol HFA 160 mcg-4.5 mcg/actuation aerosol inhaler 2 puff INHALATION Q12H 09/20/18 [History Confirmed 05/05/19] melatonin 3 mg tablet 3 mg PO HS 09/20/18 [History Confirmed 05/05/19] morphine PO 10/20/18 [History Confirmed 05/05/19] Dexamethasone [Decadron] 4 mg PO QHS 11/30/18 [History Confirmed 05/05/19] Methadone HCl [Dolophine] 5 mg PO Q12H 11/30/18 [History Confirmed 05/05/19] Oxycodone HCl 10 - 20 mg PO Q6H PRN PRN 11/30/18 [History Confirmed 05/05/19] folic acid 1 mg tablet See Rx Instructions .ROUTE .COMPLEX #90 tab 01/19/19 [Rx Confirmed 05/05/19] umeclidinium 62.5 mcg/actuation blister powder for inhalation 1 inh INHALATION QDAY #30 ea 04/12/19 [Rx Confirmed 05/05/19] Ciclopirox 04/20/19 [History Confirmed 05/05/19] cholecalciferol (vitamin D3) 1,250 mcg (50,000 unit) capsule 50,000 unit PO Q4W #3 cap 04/20/19 [Rx Confirmed 05/05/19] levothyroxine 75 mcg tablet 75 mcg PO DAILY #90 tab 04/20/19 [Rx Confirmed 05/05/19] lidocaine 5 % topical patch 1 patch TOPICAL DAILY #30 ea 04/20/19 [Rx Confirmed 05/05/19] rosuvastatin 20 mg tablet 20 mg PO DAILY #90 tab 04/20/19 [Rx Confirmed 05/05/19] PFSH Medical History Lung nodule (Acute) FHx: mastectomy (Acute) NECK FUSION (Acute) Hyperlipemia (Acute) Hypothyroidism (Acute) COPD (chronic obstructive pulmonary disease) (Acute) Arthritis (Acute) Back problem (Acute) Bone fracture (Acute) History of blood transfusion (Acute) Breast lump in female (Acute) Breast cancer (Acute) Hypertension (Chronic) Neuropathy (Acute) Osteoarthritis (Acute) Osteoporosis (Acute) Seizures (Acute) Tumors (Acute) Vision problems (Acute) Ear lesion (Acute) Surgical History History of appendectomy (Resolved) H/O: hysterectomy (Resolved) History of tonsillectomy (Resolved) Status post lobectomy of lung (Resolved) History of bowel resection (Resolved) H/O foot surgery (Resolved) Previous back surgery (Resolved) H/O tubal ligation (Resolved) History of bronchoscopy (Resolved) Family History Father Pancreatic cancer Mother Non-Hodgkin lymphoma Brother Myocardial infarction Aunt Breast cancer Grandfather Aneurysm Social History (Updated 05/05/19 @ 14:[address] Shailesh Gutierrez MD) Smoking Status: Current every day smoker alcohol intake: former what type of physical activity do you participate in: walking, aerobics frequency: 3-4 times per week HPI HPI HPI: KATY BAILON, is a 68 F who presents to the office today for HPI HPI Surgical H&P: Yes HPI: KATY BAILON, is a 68 F who presents to the office today for Port placement. The patient has metastatic breast cancer requiring therapy. Patient has never had a port in the past. ROS General General: Yes weight change and fatigue Endo Endocrine: Yes thyroid disease Musc Musculoskeletal: Yes back problems and arthritis Cardio Cardiovascular: Yes murmur; no pacemaker, heart disease, atrial fibrillation, high blood pressure, heart attack, heart stent, palpitations, shortness of breat with exertion or chest pain Psych Psychiatric: No depression or anxiety Resp Respiratory: Yes shortness of breath, No sleep apnea, Yes cough, Yes COPD, No asthma, No emphysema, No wheezing Gastro Gastrointestinal: No abdominal pain, No nausea or vomiting, No diarrhea, No constipation, No blood in stool, No acid reflux, No hemorrhoids, No ulcers, No gallbladder problem, No black,tarry stools Felipe Hematologic: No blood thinners Exam Const General: cooperative Orientation: alert, oriented x3 Resp Effort & Inspection: normal respiratory effort Auscultation: clear to auscultation bilaterally Cardio Rate: regular rate Rhythm: regular rhythm Heart Sounds: murmur GI Inspection: non-distended Palpation: soft, nontender Assessment & Plan Problems 1. Encounter for adjustment and management of vascular access device Z45.2 Plan The patient is in need of vascular access port for chemotherapy. I discussed port placement with the patient in detail. I discussed the risks including but not limited to bleeding, infection, hematoma, DVT, pneumothorax. The patient understands the risks and is willing to proceed. The patient also has had a history of breast cancer with recurrence and metastasis, lung cancer, colon cancer, melanoma. She has never had any sort of genetic testing and I will make a referral to a genetic counselor to see if she qualifies for genetic testing. Shailesh Gutierrez MD Pager: [facility] [address] [place] [address], [address] [place] [address] Office: Orders Referrals: Genetic Referral C18.9, C34.92, C50.911, C50.919, C78.00, C79.51, D49.2 Coding Level of Care Code Off vis,new,level 3 Diagnoses Encounter for adjustment and management of vascular access device Z45.2 05/05/19 1412 <Electronically signed by Shailesh parks MD> Date _ Shailesh Gutierrez MD I have re-examined the patient. There are no clinical changes since date of exam.
[2019-05-05 13:50] VITALS: BMI 16.6
[2019-05-08 14:09] VITALS: BMI 16.6
[2019-05-11] VITALS (7 sets, daily range): BP systolic 126–140; BP diastolic 66–72; PULSE 74–80; RESP 14–16; TEMP 36.9–37.2; O2SAT 96–98; BMI 16.5
[2019-05-11] MEDS: Lactated Ringers 1,000 ML 100 ML IV (08:19)
[2019-05-11] MEDS: Cefazolin 2 GM in 0.9% Normal Saline 100 ML IV (10:29)
[2019-05-11] MEDS: Bupiv/Epi 0.5% Mpf 30 ML Vial (10:43)
--- NOTE | 2019-05-11 11:08 | RAD_ITS ---
STUDY: X-RAY CHEST REASON FOR EXAM: Female, 68 years old. post op vascular port placement TECHNIQUE: Single AP portable view of the chest. COMPARISON: None. FINDINGS: Right chest port with a catheter tip terminating in the mid SVC noted. There is hyperinflation of the lungs consistent with chronic obstructive lung disease (COPD). There is no demonstrated pleural abnormality. Normal size heart. Normal mediastinum and theo. Normal visualized pulmonary arteries. There is atherosclerotic calcification of the aortic arch with tortuosity. There is demineralization of the osseous structures. Normal visualized ribs, clavicles, and shoulders. RAD/CXR for Line Placement IMPRESSION: COPD Electronically Signed: Cameron Pratt MD at 13:24 EST , Service support ,
--- NOTE | 2019-05-11 11:08 | OP.PCM_ITS ---
Problem List (1) Cancer of right breast Status: Chronic (2) Breast cancer metastasized to lung Status: Chronic Qualifiers: Report of Operation Date of Procedure: 05/11/19 Pre-Operative Diagnosis: Metastatic breast cancer. Need for vascular access Post-Operative Diagnosis: Same Surgery/Procedure Performed:: Ultrasound and fluoroscopy guided right chest port placement utilizing right IJ Description of Procedure: After obtaining informed consent patient was brought back to the operating room MAC anesthesia was induced and the right chest and neck were prepped in normal sterile fashion. Ultrasound was used to evaluate both IJs and the right IJ was selected. Next, using a needle, the right IJ was accessed and a guidewire was passed on into the superior vena cava under fluoroscopy guidance. A small incision was made over the puncture site and the dilator introducer was placed over the guidewire. Next this was capped and the pocket was made for the port. 1% lidocaine with epinephrine was injected in the proposed port site. An incision was made with scalpel. Electrocautery was used to make a pocket under the skin and subcutaneous tissue. Hemostasis was obtained. Next, the catheter was tunneled up to the neck incision site and placed through the introducer. The peel-away introducer was removed and the position of the catheter was confirmed on fluoroscopy. Next, the catheter was trimmed and attached to the port with the locking device. Interrupted 2-0 Vicryl sutures were used to anchor the port to the chest wall and then the port was placed inside the pocket. The pocket was then flushed with saline and the port irrigated with saline. There was good blood return and the port flushed easily. Next, heparin was injected into the port. The skin was closed with subcutaneous interrupted 3-0 Vicryl sutures. A single 3-0 Vicryl sutures placed under the skin at the neck incision site. Steri-Strips were placed as well as op sites. Patient tolerated procedure well, was taken to PACU in stable condition. Chest x-ray will be obtained. Grafts/Implants Used: 8 Amharic PowerPort - Admit VTE Documentation VTE Mechan Device Prophylaxis: SCD's
--- NOTE | 2019-05-11 11:10 | PCM.DC.POR ---
Discharge Diet: No Restrictions - Pain medication may cause nausea. You should typically eat light foods as you take your pain medication. Discharge Activity: Return to Normal Activity, May Shower - with your bandage in place in 1-2 days after surgery. DO NOT SHOWER WHEN YOUR PORT IS ACCESSED. Call your doctor if your incision/area has: Continuous Slow Oozing, Sudden Increased Bleeding, Increased Pain/ Swelling, Increased Redness Call your doctor if you observe: Fever of 101 or Higher Remove Dressing in (days):: 3 - When you remove the bandage, leave the steri-strips intact until they fall off. Allergies/Adverse Reactions: Allergies bee venom protein (honey bee) Allergy (Verified 05/11/19 08:07) Anaphylaxis Medications to take at Discharge Tizanidine HCl [Zanaflex] 6 mg PO TID 06/22/16 Topiramate [Qudexy Xr] 200 mg PO BID 06/22/16 Amitriptyline HCl 25 mg PO QHS 05/09/18 epinephrine 0.3 mg/0.3 mL injection, auto-injector 0.3 ml SC PRN PRN #2 ea 07/21/18 Exemestane [Aromasin] 25 mg PO DAILY #90 tab 09/05/18 budesonide-formoterol HFA 160 mcg-4.5 mcg/actuation aerosol inhaler 2 puff INHALATION Q12H 09/20/18 melatonin 3 mg tablet 3 mg PO HS 09/20/18 Dexamethasone [Decadron] 4 mg PO QHS 11/30/18 Methadone HCl [Dolophine] 5 mg PO Q12H 11/30/18 Oxycodone HCl 10 - 20 mg PO Q6H PRN PRN 11/30/18 Ciclopirox 1 applic TOPICAL QHS 04/20/19 cholecalciferol (vitamin D3) 1,250 mcg (50,000 unit) capsule 50,000 unit PO Q4W #3 cap 04/20/19 levothyroxine 75 mcg tablet 75 mcg PO DAILY #90 tab 04/20/19 rosuvastatin 20 mg tablet 20 mg PO DAILY #90 tab 04/20/19 Lidocaine/Prilocaine [Lidocaine-Prilocaine Cream] 1 applicatio TP DAILY PRN PRN 30 Days #1 tube 05/08/19 Morphine Sulfate 0.25 ml PO Q6H PRN 05/08/19 Ondansetron [Ondansetron Odt] 8 mg PO Q8H PRN PRN 10 Days #30 tab.rapdis 05/08/19 Folic Acid 1 tab PO DAILY 05/10/19 Lidocaine 1 patch TOPICAL DAILY 05/10/19 Omeprazole [Prilosec] 20 mg PO DAILY 05/10/19 Umeclidinium [place] Inhaler [Incruse Ellipta Inhaler] 1 puff IH DAILY 05/10/19 Test Results: Test results from this visit will be discussed in further detail at your follow-up appointment, if applicable. Please Follow Up With: Shailesh Gutierrez MD When: Please call to schedule 2 week follow up appointment. [phone]
--- NOTE | 2019-05-11 13:03 | SUR.PHASEII ---
PATIENT MAY BE D/C HOME PER DR BRAND/LASHANDA URENA.
== END 2019-05-11 13:01 | disposition home or self-care (01) ==
LOC: SDC 07:43 → AC 07:44
PROVIDERS: PCP Internal Medicine; Referring Provider Surgery; Visit Provider Surgery
PROC: (CPT 36561; principal; 2019-05-11 09:15)
DX: Z45.2 Encounter for adjustment and management of vascular access device (principal); C50.911 Malignant neoplasm of unspecified site of right female breast; J44.9 Chronic obstructive pulmonary disease, unspecified; E78.5 Hyperlipidemia, unspecified; E03.9 Hypothyroidism, unspecified; I10 Essential (primary) hypertension; E07.9 Disorder of thyroid, unspecified; M19.90 Unspecified osteoarthritis, unspecified site; K21.9 Gastro-esophageal reflux disease without esophagitis; M81.0 Age-related osteoporosis without current pathological fracture; F17.200 Nicotine dependence, unspecified, uncomplicated; Z79.899 Other long term (current) drug therapy; Z78.0 Asymptomatic menopausal state; Z85.3 Personal history of malignant neoplasm of breast; Z85.038 Personal history of other malignant neoplasm of large intestine
CPT/HCPCS: 00532; 36561; 71045; 77001; J7120; C1788

== ENCOUNTER → 2019-05-30 15:32 | Outpatient (CLI) | payer MEDICARE, MEDICAID, SELFPAY ==
[2019-05-30 11:34] VITALS: BMI 19.5
--- NOTE | 2019-05-30 15:35 | VDLE_ITS ---
Reason For Study: swelling RIGHT LEFT GSV is normal. GSV is normal. CFV is compressible, spontaneous, phasic, CFV is compressible, spontaneous, phasic, competent and demonstrates normal competent, and demonstrates normal augmentation. augmentation. POP V is compressible, spontaneous, phasic, FV is compressible, spontaneous, phasic, competent and demonstrates normal competent and demonstrates normal augmentation. augmentation. T/P Trunk is compressible. POP V is compressible, spontaneous, phasic, PTV is compressible. competent and demonstrates normal RT PerV is compressible. augmentation. FV demonstrates chronic vein wall thickening T/P Trunk is compressible. throughout. PTV is compressible. Procedure LT PerV is compressible. Exam performed in department. Gastroc V and Soleus V are dilated and The exam was diagnostic. noncompressible. A preliminary report was called and/or faxed to Dr. Manuel. Interpretation Summary Mild vein wall thickening of the right femoral vein. No evidence for acute deep venous thrombosis right lower extremity. Acute deep venous thrombosis left gastrocnemius and soleus veins. Patent and compressible bilateral great saphenous veins Ordering Physician: Lex Manuel Performed By: Josh Morris RVT
== END ==
PROVIDERS: PCP Internal Medicine; Referring Provider Internal Medicine Medical Oncology; Visit Provider Internal Medicine Medical Oncology
DX: R60.0 Localized edema (principal); Z79.899 Other long term (current) drug therapy
CPT/HCPCS: 93970

== ENCOUNTER → 2019-09-06 09:13 | Outpatient (CLI) | payer MEDICARE, MEDICAID, SELFPAY ==
[2019-08-29 10:53] VITALS: BMI 19.5
[2019-09-05 11:30] VITALS: BMI 19.5
--- NOTE | 2019-09-06 09:14 | NM_ITS ---
CLINICAL: 68-year-old female with reported history of carcinoma of the breast. WHOLE BODY 99m Tc MDP RADIONUCLIDE BONE SCINTIGRAPHY COMPARISON: Previous whole body bone scintigraphy study dated 04/17/2019 FINDINGS: Following the intravenous administration of 23.0 mCi of 99m Tc MDP, whole body bone images reveal: 1. Increased radiopharmaceutical concentration remains apparent in the distal sternum, right scapula, the right clavicle, ninth-10th and 12th thoracic vertebra, first and fifth lumbar vertebra, sacrum, right proximal femoral diaphysis, bilateral ribs, and newly identified in the left clavicle. The intensity of uptake is increased in several locations relative to the previous examination. 2. The remaining skeletal structures are scintigraphically unremarkable with normal-appearing renal images and urinary bladder activity identified. NM/Bone Scan Whole Body IMPRESSION: 1. Both redefined and newly apparent foci of increased tracer uptake noted in the axial and appendicular skeletal structures remains consistent with osteoblastic turnover associated with osseous metastatic disease. 2. Overall compared to the previous whole body bone scintigraphy study dated 09/06/2019, there is multifocal redemonstrated and newly apparent skeletal metastasis. Electronically Signed: Erwin Lemus DO at 22:45 EDT Tel , Service support ,
--- NOTE | 2019-09-06 09:55 | NURSING ---
PT'S POWER PORT COULD NOT BE USED FOR INJECTION IN NUCLEAR MEDICINE DUE TO NO BLOOD RETURN. IV INITIATED INSTEAD. LASHANDA TRAVIS TO CALL DR. BRO'S OFFICE AND INFORM NO BLOOD RETURN ON PT'S POWER PORT TO SEE IF THEY WANT TO USE CATHFLO IN OFFICE.
== END ==
PROVIDERS: PCP Internal Medicine; Referring Provider Internal Medicine Medical Oncology; Visit Provider Internal Medicine Medical Oncology
DX: C50.911 Malignant neoplasm of unspecified site of right female breast (principal); C79.51 Secondary malignant neoplasm of bone
CPT/HCPCS: 78306; A4216

== ENCOUNTER 2019-09-11 18:28 | Emergency (ER) | payer MEDICARE, MEDICAID, SELFPAY ==
[2019-09-05 11:30] VITALS: BMI 19.5
[2019-09-11 18:29] VITALS: BP 117/61; PULSE 103; RESP 18; TEMP 36.6; O2SAT 97; BMI 23.5
[2019-09-11] MEDS: 0.9% Normal Saline 1,000 ML 1000 ML IV (19:50)
--- NOTE | 2019-09-11 19:52 | ED.DCSUM_ITS ---
History of Present Illness Chief Complaint: Diarrhea Informant: Patient Onset: Days Context: Gradual Onset Current Severity: Moderate Maximum Severity: Moderate Narrative: Patient present secondary to diarrhea. She is currently on chemotherapy for history of breast cancer with mets. She received her most recent dose of chemotherapy last Wednesday. That evening she developed diarrhea and has had that since. She denies fever or chills. She has chronic back pain secondary to her metastasis. She denies abdominal pain. - Past Medical History (1) Arthritis Status: Acute (2) Back pain Status: Acute (3) Breast cancer Status: Acute (4) COPD (chronic obstructive pulmonary disease) Status: Acute (5) FHx: mastectomy Status: Acute (6) Hyperlipemia Status: Acute (7) Hypothyroidism Status: Acute (8) Neuropathy Status: Acute (9) Osteoarthritis Status: Acute (10) Osteoporosis Status: Acute (11) Seizures Status: Acute (12) Hypertension Status: Chronic (13) History of appendectomy Status: Resolved (14) History of bowel resection Status: Resolved Past Medical History - Allergies and Home Meds Allergies/Adverse Reactions: Allergies bee venom protein (honey bee) Allergy (Verified 09/11/19 18:31) Anaphylaxis Primary Care Physician: Mary Muniz MD [Primary Care Provider] - Doctors: Dr. Manuel Prior records reviewed: Yes Smoking Status: Current every day smoker Review of Systems General: Denies: Chills, Fever Eyes: Denies: Visual changes - bilaterally ENT: Denies: Bilateral ear pain Cardiovascular: Denies: Chest pain Respiratory: Denies: Dyspnea, Cough Gastrointestinal: Reports: Diarrhea. Denies: Abdominal pain, Nausea, Vomiting Genitourinary: Denies: Dysuria Neurological: Denies: Headache Hematologic: Denies: Easy bruising, Easy bleeding Allergy: Denies: Uticaria Physical Exam Vital Signs/Narrative: Vital Signs Temp Pulse Resp BP Pulse Ox 09/11/19 18:29 97.8 F 103 H 18 117/61 97 Inital Vital Signs reviewed: Yes General: Well nourished, Well developed Head: Normocephalic ENT: Moist mucous membranes Neck: Supple Cardiovascular: Regular rate, Regular rhythm Respiratory: No distress, CTA bilaterally Abdomen: Soft, Nontender, Normal bowel sounds Skin: Normal color Neurological: Alert, Oriented x3 Psychological: Normal affect Diagnostic/Tx/Re-eval Laboratory Results 09/11/19 09/11/19 19:47 19:47 WBC 3.0 L RBC 2.03 L Hgb 7.9 L Hct 25.3 L MCV 124.6 H MCH 38.9 H MCHC 31.2 L RDW Std Deviation 75.2 H RDW Coeff of Jess 16.3 H Plt Count 127 L MPV 10.8 Immature Gran % (Auto) 1.700 H Neut % (Auto) 49.1 Lymph % (Auto) 40.3 [place] % (Auto) 8.9 Eos % (Auto) 0.0 Baso % (Auto) 0.0 Absolute Neuts (auto) 1.5 L Absolute Lymphs (auto) 1.22 Nucleated RBC % 0 Diff Path Review May foll Atypical Lymphocytes 2+ Platelet Estimate SLT DEC RBC Morphology N CHROM Anisocytosis 1+ Sodium 141 Potassium 4.4 Chloride 111 H Carbon Dioxide 22.0 Anion Gap 8 BUN 29 H Creatinine 0.75 Estim Creat Clear Calc 51.63 Est GFR (MDRD) Af Amer 98 Est GFR (MDRD) Non-Af 81 BUN/Creatinine Ratio 38.5 H Glucose 99 Calcium 8.6 - Medical Decision Making Patient was given IV fluid here. On repeat evaluation she does feel somewhat improved. She states that her doctor had suggested trying Imodium but she did n ot have any at home. She will be given a dose here and given a prescription for the same. She will follow-up with Dr. Manuel within the next couple days. ED Disposition - Plan for ED Patient: Disposition: Home or Assisted Living Diagnosis: Diarrhea Instructions: Oncology: Controlling Diarrhea Prescriptions: Loperamide [Imodium] 2 mg PO Q6H PRN PRN #10 cap PRN Reason: Diarrhea Transmission Status: Pending to [facility] Referrals: Lex Manuel MD [NON-STAFF] -
[2019-09-11 20:06] LABS: Absolute Lymphocyte Count 1.22 X10^3/uL (0.83-4.51); Absolute Neutrophil Count 1.5 X10^3/uL (2.0-7.7); Hematocrit 25.3 % (37-47); Hemoglobin 7.9 g/dL (12.0-15.0); Lymphocyte # 1.22 X10^3/ul (4.0); Lymphocyte % 40.3 % (19-41); Mean Corp Hgb Conc 31.2 g/dL (32-36); Mean Corpuscular Hgb 38.9 pg (27.0-32.0); Mean Corpuscular Volume 124.6 fL (81-99); Mean Platelet Vol. 10.8 fl (6.2-12.0); Monocyte# 0.27 X10^3/uL; Monocyte% 8.9 % (0-10); NRBC Flagged by Analyzer 0 % (0-5); Neutrophil # 1.49 X10^3/uL (2.7-7.7); Neutrophil % 49.1 % (47-70); POSITIVE MORPHOLOGY YES; Platelet Count 127 K/mm3 (150-450); RBC Distribution Width CV 16.3 % (11.6-14.6); RBC Distribution Width SD 75.2 fl (35.1-43.9); Red Blood Count 2.03 M/mm3 (4.2-5.4)
[2019-09-11 20:11] LABS: Anion Gap 8 (5-15); BUN 29 mg/dL (7-18); BUN/Creat Ratio 38.5 RATIO (10-20); Calcium,Total 8.6 mg/dL (8.5-10.1); Chloride 111 mmol/L (98-107); Creatinine, Serum 0.75 mg/dL (0.55-1.02); EST Glomerular Filtration Rate 81 mL/min (>60); Est Glom Filt Rate - Afr Amer 98 mL/min (>60); Estimated Creatinine Clearance 51.63 ml/min; Glucose 99 mg/dL (74-106); Potassium 4.4 mmol/L (3.5-5.1); Sodium Level 141 mmol/L (136-145)
[2019-09-11 20:55] LABS: Differential Indicated SCAN CRITERIA MET; Platelet Estimate SLT DEC (ADEQ)
[2019-09-11 20:56] LABS: Anisocytosis 1+; Atypical Lymphocyte 2+ %; Pathologist Review May foll; Red Cell Morphology N CHROM NORMAL (NORM C&C)
[2019-09-11 21:06] VITALS: BP 140/78; PULSE 76; RESP 16; O2SAT 99
[2019-09-11] MEDS: 0.9% Normal Saline 1,000 ML 150 ML IV (21:11)
[2019-09-11] MEDS: Loperamide 2 MG Capsule 4 MG PO (22:29)
[2019-09-11 22:52] VITALS: BP 119/81; PULSE 82; RESP 16; O2SAT 97
== END 2019-09-11 23:00 | disposition home or self-care (01) ==
PROVIDERS: Emergency Provider Emergency Medicine; PCP Internal Medicine
DX: R19.7 Diarrhea, unspecified (principal); C50.919 Malignant neoplasm of unspecified site of unspecified female breast; C79.9 Secondary malignant neoplasm of unspecified site; J44.9 Chronic obstructive pulmonary disease, unspecified; I10 Essential (primary) hypertension; E78.5 Hyperlipidemia, unspecified; E03.9 Hypothyroidism, unspecified; R56.9 Unspecified convulsions; M19.90 Unspecified osteoarthritis, unspecified site; G62.9 Polyneuropathy, unspecified; G89.29 Other chronic pain; M81.0 Age-related osteoporosis without current pathological fracture; F17.200 Nicotine dependence, unspecified, uncomplicated; Z79.899 Other long term (current) drug therapy
CPT/HCPCS: 80048; 85025; 96360; 96361; 99284; J7030; A4216

== ENCOUNTER → 2019-09-28 14:15 | Outpatient (CLI) | payer MEDICARE, MEDICAID, SELFPAY ==
[2019-09-19 10:26] VITALS: BMI 19.8
--- NOTE | 2019-09-28 14:16 | CT_ITS ---
STUDY: CT CHEST WITH CONTRAST REASON FOR EXAM: Female, 68 years old. ASSESS TREATMENT, BREAST CA W/METS RADIATION DOSAGE (If Supplied By Facility): CTDIvol = ( 7.79 ) mGy, DLP = ( 487.80 ) mGycm TECHNIQUE: Transaxial imaging was performed following intravenous administration of IV 100mL Isovue-300. Multiplanar coronal and sagittal images were reformatted. Individualized dose optimization techniques were used for this CT. COMPARISON: Comparison is made with prior study dated May 17, 2018. FINDINGS: A right-sided Port-A-Cath is seen with the tip in the superior vena cava. The patient is status post right mastectomy. Mild degree of emphysematous changes. Stable increased markings in the left upper lobe with areas of bronchiectasis and cystic changes. Similar changes are seen in the superior segment of the left lower lobe. This may represent changes secondary to post radiation fibrosis and scarring. Stable elevation of the left hemidiaphragm. There is no demonstrated pleural abnormality. Normal heart and pericardium. Normal mediastinum. Normal hilar regions. Normal enhanced pulmonary arteries. Normal aorta arch and descending thoracic aorta. Sclerotic metastasis involving multiple thoracic and upper lumbar vertebrae. There is no demonstrated abnormality of the visualized upper abdomen. CT/Chest WITH Contrast IMPRESSION: Stable examination. Sclerotic bony metastasis. Electronically Signed: Mitch Mcrae, at 15:21 EDT , Service support ,
--- NOTE | 2019-09-28 14:16 | CT_ITS ---
STUDY: CT ABDOMEN AND PELVIS WITH CONTRAST REASON FOR EXAM: Female, 68 years old. ASSESS TREATMENT RESPONSE/METASTATIC BREAST CA RADIATION DOSAGE (If Supplied By Facility): CTDIvol = ( 7.79 ) mGy, DLP = ( 487.80 ) mGycm TECHNIQUE: Transaxial images were obtained from the dome of the diaphragm to the symphysis pubis without oral contrast. IV 100mL Isovue-300 was administered. Sagittal and coronal images were reconstructed. Individualized dose optimization techniques were used for this CT. COMPARISON: Comparison is made with prior examination dated May 17, 2018. FINDINGS: There is elevation of the left hemidiaphragm. Mild degree of increased linear markings at the lung bases suggestive of the mild degree of bibasilar scarring. The visualized portions of the heart are within normal limits. Normal liver. Normal gallbladder and extrahepatic biliary system. Normal spleen. Normal pancreas. Normal bilateral adrenal glands. Normal right kidney. Normal left kidney. Normal visualized stomach. Normal small intestine. Moderate amount of fecal material is seen in the colon. The appendix is visualized and appears normal. There is diffuse atherosclerotic calcification of the abdominal aorta, without a demonstrated aneurysm. Normal inferior vena cava. Normal retroperitoneum. Normal urinary bladder. There is absence of the uterus consistent with a prior hysterectomy. Normal abdominal wall. There are diffuse degenerative changes of the visualized lumbar spine. Sclerotic changes are seen at the T10 vertebral level as well as the L1 vertebrae. There is also evidence of a sclerotic lesions involving the superior aspect of the sacrum. This is suggestive of a sclerotic metastasis. Dextroscoliosis. CT/Abdomen/Pelvis W IV Cont ONLY IMPRESSION: Stable examination Sclerotic bony metastasis of the axial skeleton as described. This has progressed as compared to prior study. Electronically Signed: Mitch Mcrae, at 15:20 EDT , Service support ,
[2019-09-28] MEDS: 0.9% Saline Lock 10 ML Syringe IV (14:37)
== END ==
PROVIDERS: PCP Internal Medicine; Referring Provider Internal Medicine Medical Oncology; Visit Provider Internal Medicine Medical Oncology
DX: C50.911 Malignant neoplasm of unspecified site of right female breast (principal); C78.00 Secondary malignant neoplasm of unspecified lung; C79.51 Secondary malignant neoplasm of bone
CPT/HCPCS: 71260; 74177; Q9967; A4216

== ENCOUNTER → 2019-10-04 15:08 | Outpatient (CLI) | payer MEDICARE, MEDICAID, SELFPAY ==
[2019-10-02 11:41] VITALS: BMI 19.9
== END ==
PROVIDERS: PCP Internal Medicine; Referring Provider Nurse Practitioner Acute Care; Visit Provider Nurse Practitioner Acute Care
DX: J47.9 Bronchiectasis, uncomplicated (principal)

== ENCOUNTER → 2019-10-25 14:53 | Outpatient (CLI) | payer MEDICARE, MEDICAID, SELFPAY ==
[2019-10-18 14:47] VITALS: BMI 19.9
--- NOTE | 2019-10-25 14:54 | RAD_ITS ---
STUDY: X-RAY - LEFT KNEE REASON FOR EXAM: Female, 68 years old. CHRONIC PAIN TECHNIQUE: 4 view(s) of the knee. COMPARISON: None. FINDINGS: Normal visualized distal femur. Normal visualized proximal tibia and fibula. Normal proximal tibiofibular articulation. There is mild degenerative arthrosis of the medial femorotibial compartment. Normal lateral femorotibial compartment. There is mild degenerative arthrosis of the patellofemoral articulation. The soft tissue structures are unremarkable. RAD/Knee 4 or More Views IMPRESSION: Degenerative arthrosis. Electronically Signed: Erwin Santiago MD at 15:13 EDT Tel , Service support ,
--- NOTE | 2019-10-25 14:54 | RAD_ITS ---
STUDY: X-RAY - RIGHT KNEE REASON FOR EXAM: Female, 68 years old. CHRONIC PAIN TECHNIQUE: 4 view(s) of the knee. COMPARISON: None. FINDINGS: Normal visualized distal femur. Normal visualized proximal tibia and fibula. Normal proximal tibiofibular articulation. There is mild degenerative arthrosis of the medial femorotibial compartment. Normal lateral femorotibial compartment. There is mild degenerative arthrosis of the patellofemoral articulation. The soft tissue structures are unremarkable. RAD/Knee 4 or More Views IMPRESSION: Degenerative arthrosis. Electronically Signed: Erwin Santiago MD at 15:12 EDT Tel , Service support ,
== END ==
PROVIDERS: PCP Internal Medicine; Referring Provider Orthopaedic Surgery; Visit Provider Orthopaedic Surgery
DX: M25.561 Pain in right knee (principal); M25.562 Pain in left knee
CPT/HCPCS: 73564

== ENCOUNTER 2020-02-01 12:00 | Outpatient (RCR) | payer MEDICARE, MEDICAID, SELFPAY ==
--- NOTE | 2020-01-05 13:32 | HP.PTEVAL_ITS ---
Patient's Visit Information KATY BAILON is a 69 year old F referred to Physical Therapy by Dr. Lex Manuel MD with a diagnosis of Debilitation. Date of Evaluation: 01/05/20 Physical Therapist: Amador Hearn, PT, ATC - Visit Plan Frequency: 2-3x /Week Duration: 4-6 Weeks Plan: B LE strengthening, core stab ex's, gait training, balance and proprio, nustep, and HEP - Subjective Pt reports she has been battling bone cancer for several months. Pt reports she finished a round of chemo in August, and has noticed a significant decrease in activity due to fatigue. Pt notes she now has difficulty with prolonged ambulation and IADL's such as washing dishes. Pt reports she has 2 steps into her house, and she is able to negotiate them one step at a time. Pt notes she has had PT in the past for this, but every time she has chemo she becomes weak again. Pt reports no Hx of falling. Pt reports her cancer first started in 2000. Pt notes her goals are to be able to walk farther and perform IADL's without such difficulty. 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 No pain this date - Objective Neuro: B LE sensation is WNL to light touch. B patellar reflex= 1/3. MMT: B LE's are grossly 4-/5 throughout. Gait: Pt is able to ambulate approximately 150 feet until having to rest secondary to SOB. Balance: Pt is able to stand EO/EC for 30 sec without LOB, but significant sway noted. Stairs: Pt is able to negotiate 1 flight without difficulty - Goals Goal 1:: Increase B LE strength x 1 grade to aid with stair negotiation Goal Time Frame: 4-6 Weeks Goal 2:: Pt will be able to ambulate greater than 300' without a rest to aid with community ambulation Goal Time Frame: 4-6 Weeks Goal 3:: I with HEP Goal Time Frame: 4-6 Weeks - Rehabilitation Potential Physical Therapy Diagnosis: Pt has LE weakness, decreased tolerance for ambulation, and decreased tolerance for bulation secondary to debiliation from cancer treatments Rehabilitation Potential: Good - Anticipated Interventions Patient/Client Instruction: Educate patient on: Condition, Plan of Care For the Purpose of:: To improve self management Therapeutic Exercise to Include: Strength training, Endurance training, Balance training, Gait and locomotor training, Dynamic Lumbar Stabilization For the Purpose of:: To improve muscle performance and motor function, To improve ability to perform ADL's, To increase tolerance to activity/condition/position Thank you for the opportunity to evaluate your patient. For Medicare and Medicare HMO plans, please review the plan of care and approve it. It will need to be FAXED BACK to us at [phone] for Medicare purposes. For Medicare only, by signing this I certify the plan of care. Please let me know if there are questions or concerns regarding this plan of care. Physician Signature: Date:
--- NOTE | 2020-04-16 14:52 | HP.PT.NRP ---
KATY BAILON was seen in my office for initial evaluation on 01/05/20. The following Plan of Care was established for this patient: Initial Frequency: 2-3x /Week Initial Duration: 4-6 Weeks Patient/Client Instruction: Educate patient on: Condition, Plan of Care For the Purpose of:: To improve self management Therapeutic Exercise to Include: Strength training, Endurance training, Balance training, Gait and locomotor training, Dynamic Lumbar Stabilization For the Purpose of:: To improve muscle performance and motor function, To improve ability to perform ADL's, To increase tolerance to activity/condition/position This patient was last seen in our office . Pertinent comments regarding their Physical therapy will appear below: Pt was treated for 7 PT visits for debilitation through the date of 02/01/20. Pt has not returned through todays date and is discontinued at this time. At this point I will be discontinuing this patient from physical therapy. I would be happy to see this patient again in the future if found appropriate by the physician. Thank you! Amador Hearn, PT, ATC
== END 2020-02-01 19:00 | disposition home or self-care (01) ==
LOC: PT 12:00
PROVIDERS: PCP Internal Medicine; Referring Provider Internal Medicine Medical Oncology; Visit Provider Internal Medicine Medical Oncology
DX: G57.90 Unspecified mononeuropathy of unspecified lower limb (principal); M62.81 Muscle weakness (generalized)
CPT/HCPCS: 97110; 97161